=== PATIENT | female | born 1990 | race Caucasian/White ===

== ENCOUNTER 2016-06-20 08:03 | Inpatient (IN) | payer MEDICAID ==
[2016-06-20] MEDS ORDERED: Lactated Ringers 1,000 ML IV ONE ×2 (08:30→08:49)
[2016-06-20] MEDS ORDERED: Penicillin G Potassium 5 MILLUNITS in Sodium Chloride 0.9% 100 ML IV ONE (08:30)
[2016-06-20] MEDS ORDERED: Ondansetron 4 MG/2 ML SDV IV PRN (08:32)
[2016-06-20] MEDS ORDERED: Acetaminophen 325 MG Tab PO PRN (08:32)
[2016-06-20] MEDS ORDERED: fentaNYL 100 MCG/2 ML SDV IVPUSH PRN (08:32)
[2016-06-20] MEDS ORDERED: Sodium Chloride 0.9% 10 ML Syringe FLUSH PRN (08:32)
--- NOTE | 2016-06-20 08:49 | PCM.LDHP ---
L&D History of Present Illness - General Date of Service: 06/20/16 Admit Problem/Dx: Patient Status Order with Admit Dx/Problem 06/20/16 08:15 Patient Status [ADT] Routine Patient Status [ADT] Routine Admission Diagnosis/Problem Admission Diagnosis/Problem Source of Information: Patient History Limitations: Reports: No limitations - Related Data Allergies/Adverse Reactions: Allergies Allergy/AdvReac Type Severity Reaction Status Date / Time No Known Allergies Allergy Verified 11/04/13 21:27 Home Medications: Home Meds #57/Iron/FA/DSS/DHA [Extra-Virt Plus Dha Softgel] 1 cap PO DAILY [History] Past Medical History : 3 Para: 2 Other OB/BYN History: RAYSA-06/23/2016 Social & Family History - Tobacco Use Smoking Status *Q: Current Every Day Smoker Years of Tobacco use: 12 - Alcohol Use Days Per Week of Alcohol Use: 2 Number of Drinks Per Day: 4 Total Drinks Per Week: 8 - Recreational Drug Use Recreational Drug Use: No H&P Review of Systems - Review of Systems: Review Of Systems: See Below General: Reports: no symptoms HEENT: Reports: no symptoms Pulmonary: Reports: No Symptoms Cardiovascular: Reports: no symptoms Gastrointestinal: Reports: No symptoms Genitourinary: Reports: no symptoms Musculoskeletal: Reports: no symptoms Skin: Reports: no symptoms Psychiatric: Reports: no symptoms Neurological: Reports: No Symptoms Hematologic/Lymphatic: Reports: no symptoms Immunologic: Reports: no symptoms L&D Exam - Exam Exam: See Below - Vital Signs Weight: 70.307 kg - OB Specific Contraction Intensity: Strong movement: active heart tones: present Presentation: Vertex Estimated Weight: 7lbs - Denney Score Denney Score Cervix Position: Anterior Denney Score Consistency: Soft Denney Score Effacement: >80% Denney Score Dilation: > 5 cm Denney Score Infant's Station: -1 ,0 Denney Score Total: 12 - Exam General: alert, oriented HEENT: PERRLA, Conjunctiva clear, EACs clear, EOMI, Hearing intact, Mucosa moist & pink, Nares patent, Normal nasal septum, Posterior pharynx clear, Pupils equal, Pupils reactive, TMs clear Neck: supple, trachea midline Lungs: Clear to auscultation, Normal respiratory effort Cardiovascular: regular rate, regular rhythm Abdomen: normal bowel sounds, soft Rectal Exam: Normal exam Genitourinary: Normal external exam, Cervical dilitation Back Exam: normal inspection, full range of motion Extremities: normal inspection Skin: warm, dry, intact Neurological: cranial nerves intact, reflexes equal bilateral DTR: 2+: patella (L), patella (R) Psychiatric: alert, normal affect, normal mood - Patient Data Lab Results last 24 hrs: Laboratory Results - last 24 hr 06/20/16 Range/Units 08:26 WBC 14.5 H (4.5-11.0) K/uL RBC 4.35 (3.30-5.50) M/uL Hgb 13.3 D (12.0-15.0) g/dL Hct 39.1 (36.0-48.0) % MCV 90 (80-98) fL MCH 31 (27-31) pg MCHC 34 (32-36) % Plt Count 209 (150-400) K/uL Result Diagrams: 06/20/16 08:26 - Problem List (1) SNOMED Code(s): 90692932 ICD Code: Z33.1 - STATE, INCIDENTAL Status: Acute Current Visit : Yes Qualifiers: Weeks of gestation: 39 weeks Qualified Code(s): Z3A.39 - 39 weeks gestation of (2) Positive GBS test SNOMED Code(s): 3572402823525, 5014478982071 ICD Code: B95.1 - STREPTOCOCCUS, GROUP B, CAUSING DISEASES CLASSD [id number] Status: Acute Current Visit: Yes (3) Active labor at term SNOMED Code(s): 09017990 ICD Code: IRL9003 - Status: Acute Current Visit: Yes Problem List Initiated/Reviewed/Updated: Yes Orders Last 24hrs: Active Orders 24 hr Category Date Time Status Patient Status [ADT] Routine ADT 06/20/16 08:15 Active Patient Status [ADT] Routine ADT 06/20/16 08:15 Active Ambulate [RC] PER UNIT ROUTINE Care 06/20/16 08:32 Active Communication Order [RC] ASDIRECTED Care 06/20/16 08:32 Active Heart Tones [RC] PER UNIT ROUTINE Care 06/20/16 08:32 Active Notify Provider Vital Signs [RC] PRN Care 06/20/16 08:15 Active Notify Provider [RC] PRN Care 06/20/16 08:32 Active Up ad Claudia [RC] ASDIRECTED Care 06/20/16 08:32 Active VTE/DVT Education [RC] Click to Edit Care 06/20/16 08:34 Active Vital Signs [RC] PER UNIT ROUTINE Care 06/20/16 08:32 Active DRUG SCREEN, URINE [URCHEM] Routine Lab 06/20/16 08:26 Ordered UA W/MICROSCOPIC [URIN] Routine Lab 06/20/16 08:26 Ordered Acetaminophen [Tylenol] Med 06/20/16 08:32 Active 650 mg PO Q4H PRN Lactated Ringers [Ringers, Lactated] 1,000 ml Med 06/20/16 09:30 Active IV ASDIRECTED Lactated Ringers [Ringers, Lactated] 1,000 ml Med 06/20/16 08:30 Active IV BOLUS Ondansetron [Zofran] Med 06/20/16 08:32 Active 4 mg IV Q4H PRN Penicillin G Potassium [Pfizerpen] 2.5 millunits Med 06/20/16 12:30 Active Sodium Chloride 0.9% [Normal Saline] 50 ml IV Q4H Penicillin G Potassium [Pfizerpen] 5 millunits Med 06/20/16 08:30 Active Sodium Chloride 0.9% [Normal Saline] 100 ml IV ONETIME Sodium Chloride 0.9% [Saline Flush] Med 06/20/16 08:32 Active 10 ml FLUSH ASDIRECTED PRN fentaNYL [Sublimaze] Med 06/20/16 08:32 Active 100 mcg IVPUSH Q1H PRN DVT/VTE Prophylaxis Reflex [OM.PC] Routine Oth 06/20/16 08:32 Ordered Saline Lock Insert [OM.PC] Routine Oth 06/20/16 08:32 Ordered Resuscitation Status Routine Resus Stat 06/20/16 08:32 Ordered Medication Orders Acetaminophen (Tylenol) 650 mg PO Q4H PRN PRN Reason: Pain (Mild 1-3) and fever Fentanyl (Sublimaze) 100 mcg IVPUSH Q1H PRN PRN Reason: Pain (moderate 4-6) Penicillin G Potassium 5 (millunits/ Sodium Chloride) 100 mls @ 100 mls/hr IV ONETIME ONE Stop: 06/20/16 09:29 Lactated Ringer's (Ringers, Lactated) 1,000 mls @ 999 mls/hr IV BOLUS ONE Stop: 06/20/16 09:30 Lactated Ringer's (Ringers, Lactated) 1,000 mls @ 125 mls/hr IV ASDIRECTED CARLOS ALBERTO Penicillin G Potassium 2.5 (millunits/ Sodium Chloride) 50 mls @ 100 mls/hr IV Q4H CARLOS ALBERTO Ondansetron HCl (Zofran) 4 mg IV Q4H PRN PRN Reason: Nausea/Vomiting Sodium Chloride (Saline Flush) 10 ml FLUSH ASDIRECTED PRN PRN Reason: Keep Vein Open Assessment/Plan Comment:: 06/20/2016 26 yo came in this am in active labor. 39 4/7 gestational weeks today. States contractions started last night but did not get consistent till this am SVE-/ with a bulgy bag of [place] Admit for active labor at this time Labs-O negative, GBS positive, RPR nonreactive, Hep B negative, HIV negative, Rubella Immune Plan- Monitor active labor Up and about as patient desires FHTS monitor continuously Epidural for pain control per patient request Plan and anticipate a vaginal delivery
[2016-06-20] MEDS ORDERED: Lidocaine 1% 50 ML MDV ONE (09:04)
[2016-06-20] MEDS ORDERED: Naloxone 0.4 MG/ML SDV ONE (09:04)
[2016-06-20] MEDS ORDERED: Mineral Oil 10 ML Bottle ONE (09:04)
[2016-06-20] MEDS ORDERED: Lactated Ringers 1,000 ML IV SCH (09:30)
[2016-06-20] MEDS ORDERED: ePHEDrine 50 MG/ML SDV IVPUSH PRN ×2 (09:45→11:56)
[2016-06-20] MEDS: ePHEDrine 50 MG/ML SDV ONE ×2 (09:58→10:06)
--- NOTE | 2016-06-20 10:47 | PCM.PNLD ---
Labor Progress Note - VS & Meds Active Medications: Current Medications Acetaminophen (Tylenol) 650 mg PO Q4H PRN PRN Reason: Pain (Mild 1-3) and fever Ephedrine Sulfate (Ephedrine Sulfate) 5 - 10 mg IVPUSH ONETIME PRN PRN Reason: Hypotension Fentanyl (Sublimaze) 100 mcg IVPUSH Q1H PRN PRN Reason: Pain (moderate 4-6) Lactated Ringer's (Ringers, Lactated) 1,000 mls @ 125 mls/hr IV ASDIRECTED CARLOS ALBETRO Last Admin: 06/20/16 09:55 Dose: 125 mls/hr Penicillin G Potassium 2.5 (millunits/ Sodium Chloride) 50 mls @ 100 mls/hr IV Q4H CARLOS ALBERTO Ondansetron HCl (Zofran) 4 mg IV Q4H PRN PRN Reason: Nausea/Vomiting Sodium Chloride (Saline Flush) 10 ml FLUSH ASDIRECTED PRN PRN Reason: Keep Vein Open Discontinued Medications Ephedrine Sulfate (Ephedrine Sulfate) Confirm Administered Dose 50 mg .ROUTE .STK-MED ONE Stop: 06/20/16 09:54 Last Admin: 06/20/16 10:06 Dose: 5 mg Penicillin G Potassium 5 (millunits/ Sodium Chloride) 100 mls @ 100 mls/hr IV ONETIME ONE Stop: 06/20/16 09:29 Last Admin: 06/20/16 08:44 Dose: 100 mls/hr Lactated Ringer's (Ringers, Lactated) 1,000 mls @ 999 mls/hr IV BOLUS ONE Stop: 06/20/16 09:30 Last Admin: 06/20/16 08:25 Dose: 999 mls/hr Lactated Ringer's (Ringers, Lactated) 1,000 mls @ 999 mls/hr IV .BOLUS ONE Stop: 06/20/16 09:49 Last Admin: 06/20/16 10:24 Dose: Not Given Oxytocin/Sodium Chloride (Pitocin In Ns 20 Units/1,000 Ml) Confirm Administered Dose 20 unit in 1,000 mls @ as directed .ROUTE .STK-MED ONE Stop: 06/20/16 09:05 Lidocaine HCl (Xylocaine 1%) Confirm Administered Dose 100 ml .ROUTE .STK-MED ONE Stop: 06/20/16 09:05 Mineral Oil (Muri-Lube) Confirm Administered Dose 10 ml .ROUTE .STK-MED ONE Stop: 06/20/16 09:05 Naloxone HCl (Narcan) Confirm Administered Dose 0.4 mg .ROUTE .STK-MED ONE Stop: 06/20/16 09:05 - Uterine Contractions Contraction Intensity: Strong - Labor Progress (Free Text) Labor Progress: 06/20/2016 Resting comfortable after epidural SVE per RN 95/0 bulgy bag of water still intact [place] placed before exam Continue to monitor labor Continue to monitor FHTs Continue epidural for pain management Plan and anticipate for a vaginal delivery
[2016-06-20] MEDS ORDERED: Ropivacaine 100 ML ONE (11:01)
[2016-06-20] MEDS ORDERED: Naloxone 0.4 MG/ML SDV IVPUSH PRN (11:56)
[2016-06-20] MEDS ORDERED: diphenhydrAMINE 50 MG/ML SDV IVPUSH PRN (11:56)
[2016-06-20] MEDS ORDERED: Ropivacaine 100 ML EPIDUR SCH (11:56)
[2016-06-20] MEDS ORDERED: Penicillin G Potassium 2.5 MILLUNITS in Sodium Chloride 0.9% 50 ML IV SCH (12:30)
--- NOTE | 2016-06-20 12:31 | PCM.PNLD ---
Labor Progress Note - VS & Meds Vital Signs: Last Vital Signs Temp 36.9 C 06/20/16 09:00 Pulse 81 06/20/16 11:55 Resp 18 06/20/16 11:55 BP 114/69 06/20/16 11:55 Pulse Ox 99 06/20/16 11:55 Active Medications: Current Medications Acetaminophen (Tylenol) 650 mg PO Q4H PRN PRN Reason: Pain (Mild 1-3) and fever Diphenhydramine HCl (Benadryl) 25 mg IVPUSH Q6H PRN PRN Reason: ITCHING Ephedrine Sulfate (Ephedrine Sulfate) 5 - 10 mg IVPUSH ASDIRECTED PRN PRN Reason: IF SYSTOLIC BP LESS THAN 100 Fentanyl (Sublimaze) 100 mcg IVPUSH Q1H PRN PRN Reason: Pain (moderate 4-6) Lactated Ringer's (Ringers, Lactated) 1,000 mls @ 125 mls/hr IV ASDIRECTED [facility] Last Admin: 06/20/16 09:55 Dose: 125 mls/hr Penicillin G Potassium 2.5 (millunits/ Sodium Chloride) 50 mls @ 100 mls/hr IV Q4H [facility] Last Admin: 06/20/16 11:59 Dose: 100 mls/hr Ropivacaine (Naropin 0.2%) 100 mls @ 0 mls/hr EPIDUR ASDIRECTED [facility]; Titrate PRN Reason: Protocol Naloxone HCl (Narcan) 0.1 mg IVPUSH Q5M PRN PRN Reason: IF RESP RATE LESS THAN 6 Ondansetron HCl (Zofran) 4 mg IV Q4H PRN PRN Reason: Nausea/Vomiting Sodium Chloride (Saline Flush) 10 ml FLUSH ASDIRECTED PRN PRN Reason: Keep Vein Open Discontinued Medications Ephedrine Sulfate (Ephedrine Sulfate) Confirm Administered Dose 50 mg .ROUTE .STK-MED ONE Stop: 06/20/16 09:54 Last Admin: 06/20/16 10:06 Dose: 5 mg Penicillin G Potassium 5 (millunits/ Sodium Chloride) 100 mls @ 100 mls/hr IV ONETIME ONE Stop: 06/20/16 09:29 Last Admin: 06/20/16 08:44 Dose: 100 mls/hr Lactated Ringer's (Ringers, Lactated) 1,000 mls @ 999 mls/hr IV BOLUS ONE Stop: 06/20/16 09:30 Last Admin: 06/20/16 08:25 Dose: 999 mls/hr Lactated Ringer's (Ringers, Lactated) 1,000 mls @ 999 mls/hr IV .BOLUS ONE Stop: 06/20/16 09:49 Last Admin: 06/20/16 10:24 Dose: Not Given Oxytocin/Sodium Chloride (Pitocin In Ns 20 Units/1,000 Ml) Confirm Administered Dose 20 unit in 1,000 mls @ as directed .ROUTE .STK-MED ONE Stop: 06/20/16 09:05 Ropivacaine (Naropin 0.2%) Confirm Administered Dose 100 mls @ as directed .ROUTE .STK-MED ONE Stop: 06/20/16 11:02 Lidocaine HCl (Xylocaine 1%) Confirm Administered Dose 100 ml .ROUTE .STK-MED ONE Stop: 06/20/16 09:05 Mineral Oil (Muri-Lube) Confirm Administered Dose 10 ml .ROUTE .STK-MED ONE Stop: 06/20/16 09:05 Naloxone HCl (Narcan) Confirm Administered Dose 0.4 mg .ROUTE .STK-MED ONE Stop: 06/20/16 09:05 - Uterine Contractions Uterine Monitoring Mode: External Radar Base Contraction Frequency (min): 2-7 Contraction Duration (sec): 50-100 Contraction Intensity: Moderate to Strong Uterine Resting Tone: Soft - Vaginal Exam Dilation (cm): 8-9 Effacement (Percent): 90 Station: 1 Cervical Position: Midposition Sterile Vaginal Exam Performed By: Delilah Nicholas - Labor Progress (Free Text) Labor Progress: 06/20/2016 Patient comfortable with epidural SVE-9/90/0 AROM done at this time. Clear fluid noted. Family and significant other at bedside and supportive Plan Continue to monitor labor Continue to monitor FHTs Plan and anticipate vaginal delivery
[2016-06-20] MEDS ORDERED: Benzocaine 20% Top Spray 56 GM Bottle TOP PRN (15:28)
[2016-06-20] MEDS ORDERED: Docusate Sodium 100 MG Cap PO PRN (15:28)
[2016-06-20] MEDS ORDERED: Lanolin 100% Cream 40 GM Tube TOP PRN (15:28)
[2016-06-20] MEDS ORDERED: Witch Hazel Medicated Pads 100/Jar TOP PRN (15:28)
[2016-06-20] MEDS ORDERED: Ibuprofen 600 MG Tab ONE (15:35)
[2016-06-20] MEDS: Ibuprofen 600 MG Tab PO PRN (15:41)
[2016-06-20] MEDS: Acetaminophen/HYDROcodone 325-5 MG Tab PO PRN (17:46)
--- NOTE | 2016-06-20 18:44 | PCM.DEL ---
L & D Note - General Info Date of Service: 06/20/16 Mother's Due Date: 06/23/16 - Delivery Note Labor: spontaneous Delivery Outcome: Livebirth Infant Delivery Method: Spontaneous Vaginal Delivery Infant Delivery Mode: Spontaneous Presentation: Right Occiput Anterior (ELAINA) Nuchal cord: present, reduced Anesthesia Type: Epidural Amniotic Fluid Description: Clear Laceration: 1st degree, perineal Suture type: vicryl Suture size: 3-0 Placenta: intact, spontaneous Cord: 3 vessels Estimated blood loss: 200 Resuscitation needed: No : bulb syringe, stimulated, warmed Second Stage Interventions: Reports: Encouragement Given, Pushing Effectively Delivery Comments (Free Text/Narrative):: 06/20/2016 26 yo G3 now P3 now 39 4/7 gestation delivered a female in normal spontaneous vaginal delivery in ELAINA position at 1450 Infant was placed on prewarmed blanket on mothers abdomen, delayed cord clamping , then cord was double clamped and cut by father of infant. was stimulated and warmed and cried out vigorously, 7/9/9, weight 8lbs 10oz, length 20.5 inches, three vessel cord. Placenta spontaneous intact and EBL-200 1st degree perineum tear repaired in usual fashion, no lacerations to cervix, labia or rectum noted. Mother in labor room stable and stable skin to skin. Induction Criteria - Augmentation Estimated Pelvis: Reports: Adequate weight estimated:: Reports: AGA Reassuring monitoring strip: Yes - General Info Date of Service: 06/20/16 Admission Dx/Problem (Free Text): Patient Status Order with Admit Dx/Problem 06/20/16 08:15 Patient Status [ADT] Routine Patient Status [ADT] Routine Admission Diagnosis/Problem Admission Diagnosis/Problem Functional Status: Reports: pain controlled - Review of Systems General: Reports: No Symptoms HEENT: Reports: no symptoms Pulmonary: Reports: no symptoms Cardiovascular: Reports: No Symptoms Gastrointestinal: Reports: No symptoms Genitourinary: Reports: no symptoms Musculoskeletal: Reports: no symptoms Skin: Reports: no symptoms Neurological: Reports: No Symptoms Psychiatric: Reports: no symptoms - Patient Data Vitals - most recent: Last Vital Signs Temp 37.4 C 06/20/16 18:03 Pulse 68 06/20/16 18:03 Resp 18 06/20/16 18:03 BP 114/64 06/20/16 18:03 Pulse Ox 97 06/20/16 13:45 Weight - most recent: 70.307 kg I&O - last 24 hours: Intake & Output 06/20/16 06/20/16 06/20/16 06:59 14:59 22:59 Intake Total 1100 1050 Output Total 550 Balance 1100 500 Lab Results last 24 hrs: Laboratory Results - last 24 hr 06/20/16 06/20/16 06/20/16 Range/Units 08:26 08:26 08:26 WBC 14.5 H (4.5-11.0) K/uL RBC 4.35 (3.30-5.50) M/uL Hgb 13.3 D (12.0-15.0) g/dL Hct 39.1 (36.0-48.0) % MCV 90 (80-98) fL MCH 31 (27-31) pg MCHC 34 (32-36) % Plt Count 209 (150-400) K/uL Urine Color Yellow Urine Appearance Slightly cloudy Urine pH 7.0 (4.5-8.0) Ur Specific [place] 1.010 (1.008-1.030) Urine Protein Negative (NEGATIVE) mg/dL Urine Glucose (UA) Normal (NEGATIVE) mg/dL Urine Ketones Negative (NEGATIVE) mg/dL Urine Occult Blood Negative (NEGATIVE) Urine Nitrite Negative (NEGATIVE) Urine Bilirubin Negative (NEGATIVE) Urine Urobilinogen Normal (NORMAL) mg/dL Ur Leukocyte Esterase Negative (NEGATIVE) Urine RBC 0-5 (0-5) Urine WBC 0-5 (0-5) Ur Epithelial Cells Rare Amorphous Sediment Not seen Urine Bacteria Rare Urine Mucus Rare Urine Opiates Screen Negative (NEGATIVE) Ur Oxycodone Screen Negative (NEGATIVE) Urine Methadone Screen Negative (NEGATIVE) Ur Propoxyphene Screen Negative (NEGATIVE) Ur Barbiturates Screen Negative (NEGATIVE) Ur Tricyclics Screen Negative (NEGATIVE) Ur Phencyclidine Scrn Negative (NEGATIVE) Ur Amphetamine Screen Negative (NEGATIVE) U Methamphetamines Scrn Negative (NEGATIVE) Urine MDMA Screen Negative (NEGATIVE) U Benzodiazepines Scrn Negative (NEGATIVE) U Cocaine Metab Screen Negative (NEGATIVE) U Marijuana (THC) Screen Positive H (NEGATIVE) Med Orders - Current: Current Medications Acetaminophen (Tylenol) 650 mg PO Q4H PRN PRN Reason: Pain (Mild 1-3) and fever Hydrocodone Bitart/Acetaminophen ([place] 325-5 Mg) 1 - 2 tab PO Q4H PRN PRN Reason: Pain (moderate 4-6) Last Admin: 06/20/16 17:46 Dose: 2 tab Benzocaine (Jhms-I-Tbrnajx 20% Harrell[place]) 0 gm TOP Q4H PRN PRN Reason: Perineal Comfort Measure Docusate Sodium (Colace) 100 mg PO BID PRN PRN Reason: Constipation Emollient Ointment (Lansinoh Hpa) 0 gm TOP ASDIRECTED PRN PRN Reason: Sore Nipples Oxytocin/Sodium Chloride (Pitocin In Ns 20 Units/1,000 Ml) 20 unit in 1,000 mls @ 6 mls/hr IV TITRATE CARLOS ALBERTO; 2 MUNITS/MIN PRN Reason: Protocol Last Titration: 06/20/16 15:30 Dose: 125 mls/hr Ibuprofen (Motrin) 600 mg PO Q6H PRN PRN Reason: mild pain or fever Last Admin: 06/20/16 15:41 Dose: 600 mg Ondansetron HCl (Zofran) 4 mg IV Q4H PRN PRN Reason: Nausea/Vomiting Sodium Chloride (Saline Flush) 10 ml FLUSH ASDIRECTED PRN PRN Reason: Keep Vein Open Witch Cinthia (Tucks) 1 pad TOP ASDIRECTED PRN PRN Reason: Hemorrhoids Discontinued Medications Diphenhydramine HCl (Benadryl) 25 mg IVPUSH Q6H PRN PRN Reason: ITCHING Ephedrine Sulfate (Ephedrine Sulfate) Confirm Administered Dose 50 mg .ROUTE .STK-MED ONE Stop: 06/20/16 09:54 Last Admin: 06/20/16 10:06 Dose: 5 mg Ephedrine Sulfate (Ephedrine Sulfate) 5 - 10 mg IVPUSH ASDIRECTED PRN PRN Reason: IF SYSTOLIC BP LESS THAN 100 Fentanyl (Sublimaze) 100 mcg IVPUSH Q1H PRN PRN Reason: Pain (moderate 4-6) Penicillin G Potassium 5 (millunits/ Sodium Chloride) 100 mls @ 100 mls/hr IV ONETIME ONE Stop: 06/20/16 09:29 Last Admin: 06/20/16 08:44 Dose: 100 mls/hr Lactated Ringer's (Ringers, Lactated) 1,000 mls @ 999 mls/hr IV BOLUS ONE Stop: 06/20/16 09:30 Last Admin: 06/20/16 08:25 Dose: 999 mls/hr Lactated Ringer's (Ringers, Lactated) 1,000 mls @ 125 mls/hr IV ASDIRECTED CARLOS ALBERTO Last Admin: 06/20/16 09:55 Dose: 125 mls/hr Penicillin G Potassium 2.5 (millunits/ Sodium Chloride) 50 mls @ 100 mls/hr IV Q4H [facility]LOS ALBERTO Last Admin: 06/20/16 11:59 Dose: 100 mls/hr Lactated Ringer's (Ringers, Lactated) 1,000 mls @ 999 mls/hr IV .BOLUS ONE Stop: 06/20/16 09:49 Last Admin: 06/20/16 10:24 Dose: Not Given Oxytocin/Sodium Chloride (Pitocin In Ns 20 Units/1,000 Ml) Confirm Administered Dose 20 unit in 1,000 mls @ as directed .ROUTE .STK-MED ONE Stop: 06/20/16 09:05 Last Admin: 06/20/16 13:21 Dose: Not Given Ropivacaine (Naropin 0.2%) Confirm Administered Dose 100 mls @ as directed .ROUTE .STK-MED ONE Stop: 06/20/16 11:02 Ropivacaine (Naropin 0.2%) 100 mls @ 0 mls/hr EPIDUR ASDIRECTED [facility]; Titrate PRN Reason: Protocol Oxytocin/Sodium Chloride (Pitocin In Ns 20 Units/1,000 Ml) 20 unit in 1,000 mls @ 2,997 mls/hr IV ONETIME ONE; 999 MUNITS/MIN PRN Reason: Protocol Stop: 06/20/16 03:20 Last Admin: 06/20/16 15:50 Dose: Not Given Ibuprofen (Motrin) Confirm Administered Dose 600 mg .ROUTE .STK-MED ONE Stop: 06/20/16 15:36 Last Admin: 06/20/16 15:41 Dose: Not Given Lidocaine HCl (Xylocaine 1%) Confirm Administered Dose 100 ml .ROUTE .STK-MED ONE Stop: 06/20/16 09:05 Last Admin: 06/20/16 15:40 Dose: Not Given Mineral Oil (Muri-Lube) Confirm Administered Dose 10 ml .ROUTE .STK-MED ONE Stop: 06/20/16 09:05 Last Admin: 06/20/16 15:40 Dose: Not Given Naloxone HCl (Narcan) Confirm Administered Dose 0.4 mg .ROUTE .STK-MED ONE Stop: 06/20/16 09:05 Last Admin: 06/20/16 15:40 Dose: Not Given Naloxone HCl (Narcan) 0.1 mg IVPUSH Q5M PRN PRN Reason: IF RESP RATE LESS THAN 6 - Exam General: alert, oriented HEENT: Pupils equal, Pupils reactive, EOMI, Mucous membr. moist/pink Neck: supple Lungs: Clear to auscultation, Normal respiratory effort Cardiovascular: Regular Rate, Regular Rhythm Abdomen: bowel sounds present, soft, no tenderness, no distension (Female) Exam: Normal external exam, Normal speculum exam, Normal bimanual exam, Enlarged uterus, Vaginal bleeding Back Exam: normal inspection, full range of motion Extremities: no edema Skin: warm, dry, intact Wound/Incisions: healing well Neurological: no new focal deficit Psy/Mental Status: alert, normal affect, normal mood - Problem List & Annotations (1) SNOMED Code(s): 05277826 Code(s): Z33.1 - STATE, INCIDENTAL Status: Acute Current Visit: Yes Qualifiers: Weeks of gestation: 39 weeks Qualified Code(s): Z3A.39 - 39 weeks gestation of (2) Positive GBS test SNOMED Code(s): 5831560453757, 5786993892797 Code(s): B95.1 - STREPTOCOCCUS, GROUP B, CAUSING DISEASES CLASSD [facility] Status: Acute Current Visit: Yes (3) Active labor at term SNOMED Code(s): 14508010 Code(s): NXK6905 - Status: Acute Current Visit: Yes (4) Normal vaginal delivery SNOMED Code(s): 70027288 Code(s): O80 - ENCOUNTER FOR FULL-TERM UNCOMPLICATED DELIVERY Status: Acute Current Visit: Yes (5) Perineal laceration SNOMED Code(s): 615673899 Code(s): S31.41XA - LACERATION W/O FOREIGN BODY OF VAGINA AND VULVA, INIT ENCNTR Status: Acute Current Visit: Yes Qualifiers: Encounter type: initial encounter Qualified Code(s): S31.41XA - Laceration without foreign body of vagina and vulva, initial encounter - Problem List Review Problem List Initiated/Reviewed/Updated: Yes - My Orders Last 24 Hours: My Active Orders 06/20/16 08:15 Patient Status [ADT] Routine Patient Status [ADT] Routine Notify Provider Vital Signs [RC] PRN 06/20/16 08:32 Ambulate [RC] PER UNIT ROUTINE Notify Provider [RC] PRN Up ad Claudia [RC] ASDIRECTED Vital Signs [RC] PER UNIT ROUTINE Acetaminophen [Tylenol] 650 mg PO Q4H PRN Ondansetron [Zofran] 4 mg IV Q4H PRN Sodium Chloride 0.9% [Saline Flush] 10 ml FLUSH ASDIRECTED PRN DVT/VTE Prophylaxis Reflex [OM.PC] Routine Saline Lock Insert [OM.PC] Routine Resuscitation Status Routine 06/20/16 08:34 VTE/DVT Education [RC] Click to Edit 06/20/16 08:49 Epidural Catheter Management [OM.PC] Stat 06/20/16 10:30 [place] Catheter Insertion [Insert Urinary Catheter] [OM.PC] Q24H 06/20/16 13:15 Oxytocin/Normal Saline [Pitocin in NS 20 Units/1,000 ML] 20 unit in 1,000 ml IV TITRATE 06/20/16 15:28 Patient Status [ADT] Routine Consult to Home Health [CONS] Routine Acetaminophen/HYDROcodone [[place] 325-5 MG] 1 - 2 tab PO Q4H PRN Benzocaine [Okwo-E-Eqwnlcf 20% Harrells] See Dose Instructions TOP Q4H PRN Docusate Sodium [Colace] 100 mg PO BID PRN Ibuprofen [Motrin] 600 mg PO Q6H PRN Lanolin [Lansinoh HPA] 0 gm TOP ASDIRECTED PRN Witch Cinthia [Tucks] 1 pad TOP ASDIRECTED PRN Assess Lochia [WOMSER] Per Unit Routine Assess Uterine Involution [WOMSER] Per Unit Routine 06/20/16 15:29 Ice Therapy [OM.PC] Per Unit Routine Perineal Care [OM.PC] Per Unit Routine Sitz Bath [OM.PC] Per Unit Routine 06/20/16 17:10 RHOGAM, [RHIG WORKUP, ] [BBK] Routine 06/20/16 Dinner Regular Diet [DIET] 06/21/16 06:00 CBC WITH AUTO DIFF [HEME] Routine - Assessment Assessment:: 06/20/2016 26 yo G3 now P3 now 39 4/7 gestation delivered a female in normal spontaneous vaginal delivery in ELAINA position at 1450 Infant was placed on prewarmed blanket on mothers abdomen, delayed cord clamping , then cord was double clamped and cut by father of . was stimulated and warmed and cried out vigorously, 7/9/9, weight 8lbs 10oz, length 20.5 inches, three vessel cord. Placenta spontaneous intact and EBL-200 1st degree perineum tear repaired in usual fashion, no lacerations to cervix, labia or rectum noted. Mother in labor room stable and stable skin to skin. Labs-GBS positive, A positive, RPR nonreactive, Rubella nonimmune, HIV negative , Hep B negative - Plan Plan:: 06/20/2016 26 yo came in this am in active labor. 39 4/7 gestational weeks today. States contractions started last night but did not get consistent till this am SVE-/ with a bulgy bag of [place] Admit for active labor at this time Labs-O negative, GBS positive, RPR nonreactive, Hep B negative, HIV negative, Rubella Immune Plan- Monitor active labor Up and about as patient desires FHTS monitor continuously Epidural for pain control per patient request Plan and anticipate a vaginal delivery 06/20/2016 Routine cares Rhogam work up if needed Ice, tucks, spray to laceration Monitor fundus and bleeding routinely Oral pain medications as needed Encourage and support Plan discharge 48hrs due to GBS status
--- NOTE | 2016-06-20 20:34 | ANES ---
DATE OF SERVICE: 06/20/2016 Thea is a 26-year-old female patient of Patricia Bruce. Please refer to Patricia's note for diagnosis. Thea is here today with prolonged stage II labor. I was requested to consult for labor epidural. Upon arrival, I found a 26-year-old healthy female . I discussed with her risks and benefits of the procedure. She was okay to proceed. I found no contraindication to epidural placement. DESCRIPTION OF PROCEDURE: At that point, I had her seated at the edge of the bed, Betadine prep x3 to lumbar region. Sterile drape was placed and 1% lidocaine skin wheal, I believe, at the L3-L4 region, as well as deep. A 17-gauge Tuohy was placed to loss of resistance with ease. Negative CSF, negative heme, negative paresthesia. I inserted a catheter to 14 cm. At that point, a test dose was placed, 3 mL of 1.5% lidocaine with 1:200,000 epinephrine. She had negative results from the sequela. I secured the tube, placed her in a supine position, and started an infusion of 12 mL/hour of that same 0.2% ropivacaine. She tolerated the procedure quite well. Please refer to nurse's notes for vital signs and neuro status, which are unchanged and reported off to the nurse the procedure as well as what was given. Neto Lackey CRNA /[id number]
[2016-06-21] MEDS: Ibuprofen 600 MG Tab PO PRN ×3 (00:14→19:40)
[2016-06-21] MEDS: Acetaminophen/HYDROcodone 325-5 MG Tab PO PRN ×5 (00:15→23:32)
--- NOTE | 2016-06-21 08:15 | PCM.PNPP ---
- General Info Date of Service: 06/21/16 ( Day One) Admission Dx/Problem (Free Text): Patient Status Order with Admit Dx/Problem 06/20/16 08:15 Patient Status [ADT] Routine Patient Status [ADT] Routine Admission Diagnosis/Problem Admission Diagnosis/Problem Functional Status: Reports: pain controlled - Review of Systems General: Reports: No Symptoms HEENT: Reports: no symptoms Pulmonary: Reports: no symptoms Cardiovascular: Reports: No Symptoms Gastrointestinal: Reports: No symptoms Genitourinary: Reports: no symptoms Musculoskeletal: Reports: no symptoms Skin: Reports: no symptoms Neurological: Reports: No Symptoms Psychiatric: Reports: no symptoms - General Info Date of Service: 06/21/16 - Patient Data Vital Signs - most recent: Last Vital Signs Temp 36.1 C 06/21/16 04:55 Pulse 83 06/21/16 04:55 Resp 18 06/21/16 04:55 BP 103/75 06/21/16 04:55 Pulse Ox 100 06/21/16 04:55 Weight - most recent: 70.307 kg I&O - last 24 hours: Intake & Output 06/20/16 06/21/16 06/21/16 22:59 06:59 14:59 Intake Total 1052 1240 Output Total 550 1350 Balance 502 -110 Lab Results - last 24 hrs: Laboratory Results - last 24 hr 06/20/16 06/20/16 06/20/16 Range/Units 08:26 08:26 08:26 WBC 14.5 H (4.5-11.0) K/uL RBC 4.35 (3.30-5.50) M/uL Hgb 13.3 D (12.0-15.0) g/dL Hct 39.1 (36.0-48.0) % MCV 90 (80-98) fL MCH 31 (27-31) pg MCHC 34 (32-36) % Plt Count 209 (150-400) K/uL Neut % (Auto) (36-66) % Lymph % (Auto) (24-44) % Lucas % (Auto) (2-6) % Eos % (Auto) (2-4) % Baso % (Auto) (0-1) % Urine Color Yellow Urine Appearance Slightly cloudy Urine pH 7.0 (4.5-8.0) Ur Specific [place] 1.010 (1.008-1.030) Urine Protein Negative (NEGATIVE) mg/dL Urine Glucose (UA) Normal (NEGATIVE) mg/dL Urine Ketones Negative (NEGATIVE) mg/dL Urine Occult Blood Negative (NEGATIVE) Urine Nitrite Negative (NEGATIVE) Urine Bilirubin Negative (NEGATIVE) Urine Urobilinogen Normal (NORMAL) mg/dL Ur Leukocyte Esterase Negative (NEGATIVE) Urine RBC 0-5 (0-5) Urine WBC 0-5 (0-5) Ur Epithelial Cells Rare Amorphous Sediment Not seen Urine Bacteria Rare Urine Mucus Rare Urine Opiates Screen Negative (NEGATIVE) Ur Oxycodone Screen Negative (NEGATIVE) Urine Methadone Screen Negative (NEGATIVE) Ur Propoxyphene Screen Negative (NEGATIVE) Ur Barbiturates Screen Negative (NEGATIVE) Ur Tricyclics Screen Negative (NEGATIVE) Ur Phencyclidine Scrn Negative (NEGATIVE) Ur Amphetamine Screen Negative (NEGATIVE) U Methamphetamines Scrn Negative (NEGATIVE) Urine MDMA Screen Negative (NEGATIVE) U Benzodiazepines Scrn Negative (NEGATIVE) U Cocaine Metab Screen Negative (NEGATIVE) U Marijuana (THC) Screen Positive H (NEGATIVE) Blood Type Gel Antibody Screen Rhogam Indicated 06/20/16 06/21/16 Range/Units 17:10 05:55 WBC 14.4 H (4.5-11.0) K/uL RBC 4.01 (3.30-5.50) M/uL Hgb 12.1 (12.0-15.0) g/dL Hct 36.5 (36.0-48.0) % MCV 91 (80-98) fL MCH 30 (27-31) pg MCHC 33 (32-36) % Plt Count 203 (150-400) K/uL Neut % (Auto) 73 H (36-66) % Lymph % (Auto) 18 L (24-44) % Lucas % (Auto) 7 H (2-6) % Eos % (Auto) 1 L (2-4) % Baso % (Auto) 0 (0-1) % Urine Color Urine Appearance Urine pH (4.5-8.0) Ur Specific [place] (1.008-1.030) Urine Protein (NEGATIVE) mg/dL Urine Glucose (UA) (NEGATIVE) mg/dL Urine Ketones (NEGATIVE) mg/dL Urine Occult Blood (NEGATIVE) Urine Nitrite (NEGATIVE) Urine Bilirubin (NEGATIVE) Urine Urobilinogen (NORMAL) mg/dL Ur Leukocyte Esterase (NEGATIVE) Urine RBC (0-5) Urine WBC (0-5) Ur Epithelial Cells Amorphous Sediment Urine Bacteria Urine Mucus Urine Opiates Screen (NEGATIVE) Ur Oxycodone Screen (NEGATIVE) Urine Methadone Screen (NEGATIVE) Ur Propoxyphene Screen (NEGATIVE) Ur Barbiturates Screen (NEGATIVE) Ur Tricyclics Screen (NEGATIVE) Ur Phencyclidine Scrn (NEGATIVE) Ur Amphetamine Screen (NEGATIVE) U Methamphetamines Scrn (NEGATIVE) Urine MDMA Screen (NEGATIVE) U Benzodiazepines Scrn (NEGATIVE) U Cocaine Metab Screen (NEGATIVE) U Marijuana (THC) Screen (NEGATIVE) Blood Type O NEGATIVE Gel Antibody Screen Positive A* Rhogam Indicated Yes, baby rh pos Med Orders - Current: Current Medications Acetaminophen (Tylenol) 650 mg PO Q4H PRN PRN Reason: Pain (Mild 1-3) and fever Hydrocodone Bitart/Acetaminophen ([place] 325-5 Mg) 1 - 2 tab PO Q4H PRN PRN Reason: Pain (moderate 4-6) Last Admin: 06/21/16 05:00 Dose: 2 tab Benzocaine (Kwes-R-Zggduwu 20% Ayer) 0 gm TOP Q4H PRN PRN Reason: Perineal Comfort Measure Docusate Sodium (Colace) 100 mg PO BID PRN PRN Reason: Constipation Emollient Ointment (Lansinoh Hpa) 0 gm TOP ASDIRECTED PRN PRN Reason: Sore Nipples Oxytocin/Sodium Chloride (Pitocin In Ns 20 Units/1,000 Ml) 20 unit in 1,000 mls @ 6 mls/hr IV TITRATE CARLOS ALBERTO; 2 MUNITS/MIN PRN Reason: Protocol Last Titration: 06/20/16 15:30 Dose: 125 mls/hr Ibuprofen (Motrin) 600 mg PO Q6H PRN PRN Reason: mild pain or fever Last Admin: 06/21/16 00:14 Dose: 600 mg Ondansetron HCl (Zofran) 4 mg IV Q4H PRN PRN Reason: Nausea/Vomiting Sodium Chloride (Saline Flush) 10 ml FLUSH ASDIRECTED PRN PRN Reason: Keep Vein Open Witch Cinthia (Tucks) 1 pad TOP ASDIRECTED PRN PRN Reason: Hemorrhoids Discontinued Medications Diphenhydramine HCl (Benadryl) 25 mg IVPUSH Q6H PRN PRN Reason: ITCHING Ephedrine Sulfate (Ephedrine Sulfate) Confirm Administered Dose 50 mg .ROUTE .STK-MED ONE Stop: 06/20/16 09:54 Last Admin: 06/20/16 10:06 Dose: 5 mg Ephedrine Sulfate (Ephedrine Sulfate) 5 - 10 mg IVPUSH ASDIRECTED PRN PRN Reason: IF SYSTOLIC BP LESS THAN 100 Fentanyl (Sublimaze) 100 mcg IVPUSH Q1H PRN PRN Reason: Pain (moderate 4-6) Penicillin G Potassium 5 (millunits/ Sodium Chloride) 100 mls @ 100 mls/hr IV ONETIME ONE Stop: 06/20/16 09:29 Last Admin: 06/20/16 08:44 Dose: 100 mls/hr Lactated Ringer's (Ringers, Lactated) 1,000 mls @ 999 mls/hr IV BOLUS ONE Stop: 06/20/16 09:30 Last Admin: 06/20/16 08:25 Dose: 999 mls/hr Lactated Ringer's (Ringers, Lactated) 1,000 mls @ 125 mls/hr IV ASDIRECTED CARLOS ALBERTO Last Admin: 06/20/16 09:55 Dose: 125 mls/hr Penicillin G Potassium 2.5 (millunits/ Sodium Chloride) 50 mls @ 100 mls/hr IV Q4H CARLOS ALBERTO Last Admin: 06/20/16 11:59 Dose: 100 mls/hr Lactated Ringer's (Ringers, Lactated) 1,000 mls @ 999 mls/hr IV .BOLUS ONE Stop: 06/20/16 09:49 Last Admin: 06/20/16 10:24 Dose: Not Given Oxytocin/Sodium Chloride (Pitocin In Ns 20 Units/1,000 Ml) Confirm Administered Dose 20 unit in 1,000 mls @ as directed .ROUTE .STK-MED ONE Stop: 06/20/16 09:05 Last Admin: 06/20/16 13:21 Dose: Not Given Ropivacaine (Naropin 0.2%) Confirm Administered Dose 100 mls @ as directed .ROUTE .STK-MED ONE Stop: 06/20/16 11:02 Ropivacaine (Naropin 0.2%) 100 mls @ 0 mls/hr EPIDUR ASDIRECTED CARLOS ALBERTO; Titrate PRN Reason: Protocol Oxytocin/Sodium Chloride (Pitocin In Ns 20 Units/1,000 Ml) 20 unit in 1,000 mls @ 2,997 mls/hr IV ONETIME ONE; 999 MUNITS/MIN PRN Reason: Protocol Stop: 06/20/16 03:20 Last Admin: 06/20/16 15:50 Dose: Not Given Ibuprofen (Motrin) Confirm Administered Dose 600 mg .ROUTE .STK-MED ONE Stop: 06/20/16 15:36 Last Admin: 06/20/16 15:41 Dose: Not Given Lidocaine HCl (Xylocaine 1%) Confirm Administered Dose 100 ml .ROUTE .STK-MED ONE Stop: 06/20/16 09:05 Last Admin: 06/20/16 15:40 Dose: Not Given Mineral Oil (Muri-Lube) Confirm Administered Dose 10 ml .ROUTE .STK-MED ONE Stop: 06/20/16 09:05 Last Admin: 06/20/16 15:40 Dose: Not Given Naloxone HCl (Narcan) Confirm Administered Dose 0.4 mg .ROUTE .STK-MED ONE Stop: 06/20/16 09:05 Last Admin: 06/20/16 15:40 Dose: Not Given Naloxone HCl (Narcan) 0.1 mg IVPUSH Q5M PRN PRN Reason: IF RESP RATE LESS THAN 6 - Interaction Infant Disposition, : [place] in Room with Family Interaction: Holding Infant Feeding: Breastfed Infant; Nursed Well, Continues to Breastfeed, Encouraged to Breastfeed Support Person: Sister, Significant Other - Recovery Exam Fundal Tone: Firm Fundal Level: 2 Fingerbreadths Below Umbilicus Fundal Placement: Midline Lochia Amount: Small Lochia Color: Rubra/Red Perineum Description: Intact, Minimal Bruising/Swelling Episiotomy/Laceration: Approximated (no hematoma noted on exam) Bladder Status: Nonpalpable - Exam General: alert, oriented HEENT: Pupils equal Neck: supple Lungs: Clear to auscultation, Normal respiratory effort Cardiovascular: Regular Rate, Regular Rhythm Abdomen: bowel sounds present, soft, no tenderness, no distension Extremities: no edema Skin: warm, dry, intact Wound/Incisions: healing well Neurological: no new focal deficit Psy/Mental Status: alert, normal affect, normal mood - Problem List & Annotations (1) SNOMED Code(s): 67962562 Code(s): Z33.1 - STATE, INCIDENTAL Status: Acute Current Visit: Yes Qualifiers: Weeks of gestation: 39 weeks Qualified Code(s): Z3A.39 - 39 weeks gestation of (2) Positive GBS test SNOMED Code(s): 0860164678879, 1434198847656 Code(s): B95.1 - STREPTOCOCCUS, GROUP B, CAUSING DISEASES CLASSD ELSWHR Status: Acute Current Visit: Yes (3) Active labor at term SNOMED Code(s): 20712402 Code(s): TTZ5831 - Status: Acute Current Visit: Yes (4) Normal vaginal delivery SNOMED Code(s): 44696638 Code(s): O80 - ENCOUNTER FOR FULL-TERM UNCOMPLICATED DELIVERY Status: Acute Current Visit: Yes (5) Perineal laceration SNOMED Code(s): 501559899 Code(s): S31.41XA - LACERATION W/O FOREIGN BODY OF VAGINA AND VULVA, INIT ENCNTR Status: Acute Current Visit: Yes Qualifiers: Encounter type: initial encounter Qualified Code(s): S31.41XA - Laceration without foreign body of vagina and vulva, initial encounter - Problem List Review Problem List Initiated/Reviewed/Updated: Yes - My Orders Last 24 Hours: My Active Orders 06/20/16 08:15 Patient Status [ADT] Routine Patient Status [ADT] Routine Notify Provider Vital Signs [RC] PRN 06/20/16 08:32 Ambulate [RC] PER UNIT ROUTINE Notify Provider [RC] PRN Up ad Claudia [RC] ASDIRECTED Vital Signs [RC] PER UNIT ROUTINE Acetaminophen [Tylenol] 650 mg PO Q4H PRN Ondansetron [Zofran] 4 mg IV Q4H PRN Sodium Chloride 0.9% [Saline Flush] 10 ml FLUSH ASDIRECTED PRN DVT/VTE Prophylaxis Reflex [OM.PC] Routine Saline Lock Insert [OM.PC] Routine Resuscitation Status Routine 06/20/16 08:34 VTE/DVT Education [RC] Click To Edit 06/20/16 08:49 Epidural Catheter Management [OM.PC] Stat 06/20/16 10:30 [place] Catheter Insertion [Insert Urinary Catheter] [OM.PC] Q24H 06/20/16 13:15 Oxytocin/Normal Saline [Pitocin in NS 20 Units/1,000 ML] 20 unit in 1,000 ml IV TITRATE 06/20/16 15:28 Patient Status [ADT] Routine Consult to Home Health [CONS] Routine Acetaminophen/HYDROcodone [[place]udson 325-5 MG] 1 - 2 tab PO Q4H PRN Benzocaine [Mfez-J-Ebpnmbx 20% Ayer] See Dose Instructions TOP Q4H PRN Docusate Sodium [Colace] 100 mg PO BID PRN Ibuprofen [Motrin] 600 mg PO Q6H PRN Lanolin [Lansinoh HPA] 0 gm TOP ASDIRECTED PRN Witch Cinthia [Tucks] 1 pad TOP ASDIRECTED PRN Assess Lochia [WOMSER] Per Unit Routine Assess Uterine Involution [WOMSER] Per Unit Routine 06/20/16 15:29 Ice Therapy [OM.PC] Per Unit Routine Perineal Care [OM.PC] Per Unit Routine Sitz Bath [OM.PC] Per Unit Routine 06/20/16 17:10 ANTIBODY IDENTIFICATION [BBK] Routine SCREEN [BBK] Routine RHOGAM, [RHIG WORKUP, ] [BBK] Routine 06/20/16 Dinner Regular Diet [DIET] - Assessment Assessment:: 06/20/2016 26 yo G3 now P3 now 39 4/7 gestation delivered a female in normal spontaneous vaginal delivery in ELAINA position at 1450 was placed on prewarmed blanket on mothers abdomen, delayed cord clamping , then cord was double clamped and cut by father of . was stimulated and warmed and cried out vigorously, 7/9/9, weight 8lbs 10oz, length 20.5 inches, three vessel cord. Placenta spontaneous intact and EBL-200 1st degree perineum tear repaired in usual fashion, no lacerations to cervix, labia or rectum noted. Mother in labor room stable and infant stable skin to skin. Labs-GBS positive, A positive, RPR nonreactive, Rubella nonimmune, HIV negative , Hep B negative 06/21/2016 Normal Day One Well Pernieal 1st degree repaired-minimal swelling, no sign of hematoma GBS positive-treated Fundus Firm-bleeding decreasing Plan discharge 48 hrs related to GBS status - Plan Plan:: 06/20/2016 26 yo came in this am in active labor. 39 4/7 gestational weeks today. States contractions started last night but did not get consistent till this am SVE- with a bulgy bag of [place] Admit for active labor at this time Labs-O negative, GBS positive, RPR nonreactive, Hep B negative, HIV negative, Rubella Immune Plan- Monitor active labor Up and about as patient desires FHTS monitor continuously Epidural for pain control per patient request Plan and anticipate a vaginal delivery 06/20/2016 Routine cares Rhogam work up if needed Ice, tucks, spray to laceration Monitor fundus and bleeding routinely Oral pain medications as needed Encourage and support Plan discharge 48hrs due to GBS status 06/21/2016 Continue Routine Cares Monitor Perineum for swelling-use ice, tucks, spray as needed Oral Pain Medication as needed Monitor fundus and bleeding per routine Continue Encourage and Support Plan discharge tomorrow at 48 hrs due to GBS
[2016-06-22 05:27] VITALS: BP 115/80
[2016-06-22] MEDS: Ibuprofen 600 MG Tab PO PRN (08:55)
--- NOTE | 2016-06-22 08:55 | PCM.PNPP ---
- General Info Date of Service: 06/22/16 (PPD 2 D/C) Admission Dx/Problem (Free Text): Patient Status Order with Admit Dx/Problem 06/20/16 08:15 Patient Status [ADT] Routine Patient Status [ADT] Routine Admission Diagnosis/Problem Admission Diagnosis/Problem Functional Status: Reports: pain controlled - Review of Systems General: Reports: No Symptoms HEENT: Reports: no symptoms Pulmonary: Reports: no symptoms Cardiovascular: Reports: No Symptoms Gastrointestinal: Reports: No symptoms Genitourinary: Reports: no symptoms Musculoskeletal: Reports: no symptoms Skin: Reports: no symptoms Neurological: Reports: No Symptoms Psychiatric: Reports: no symptoms Systems Review Comment:: Cramping this morning - General Info Date of Service: 06/22/16 - Patient Data Vital Signs - most recent: Last Vital Signs Temp 97.7 F 06/22/16 02:00 Pulse 62 06/22/16 02:00 Resp 16 06/22/16 02:00 BP 115/80 06/22/16 02:00 Pulse Ox 99 06/22/16 02:00 Weight - most recent: 155 lb I&O - last 24 hours: Intake & Output 06/21/16 06/22/16 06/22/16 22:59 06:59 14:59 Intake Total 1200 Balance 1200 Med Orders - Current: Current Medications Acetaminophen (Tylenol) 650 mg PO Q4H PRN PRN Reason: Pain (Mild 1-3) and fever Hydrocodone Bitart/Acetaminophen ([place] 325-5 Mg) 1 - 2 tab PO Q4H PRN PRN Reason: Pain (moderate 4-6) Last Admin: 06/21/16 23:32 Dose: 2 tab Benzocaine (Xvsb-J-Pedjiub 20% Depauw) 0 gm TOP Q4H PRN PRN Reason: Perineal Comfort Measure Docusate Sodium (Colace) 100 mg PO BID PRN PRN Reason: Constipation Emollient Ointment (Lansinoh Hpa) 0 gm TOP ASDIRECTED PRN PRN Reason: Sore Nipples Ibuprofen (Motrin) 600 mg PO Q6H PRN PRN Reason: mild pain or fever Last Admin: 06/21/16 19:40 Dose: 600 mg Ondansetron HCl (Zofran) 4 mg IV Q4H PRN PRN Reason: Nausea/Vomiting Sodium Chloride (Saline Flush) 10 ml FLUSH ASDIRECTED PRN PRN Reason: Keep Vein Open Witdinora Vicente (Tucks) 1 pad TOP ASDIRECTED PRN PRN Reason: Hemorrhoids Discontinued Medications Diphenhydramine HCl (Benadryl) 25 mg IVPUSH Q6H PRN PRN Reason: ITCHING Ephedrine Sulfate (Ephedrine Sulfate) Confirm Administered Dose 50 mg .ROUTE .STK-MED ONE Stop: 06/20/16 09:54 Last Admin: 06/20/16 10:06 Dose: 5 mg Ephedrine Sulfate (Ephedrine Sulfate) 5 - 10 mg IVPUSH ASDIRECTED PRN PRN Reason: IF SYSTOLIC BP LESS THAN 100 Fentanyl (Sublimaze) 100 mcg IVPUSH Q1H PRN PRN Reason: Pain (moderate 4-6) Penicillin G Potassium 5 (millunits/ Sodium Chloride) 100 mls @ 100 mls/hr IV ONETIME ONE Stop: 06/20/16 09:29 Last Admin: 06/20/16 08:44 Dose: 100 mls/hr Lactated Ringer's (Ringers, Lactated) 1,000 mls @ 999 mls/hr IV BOLUS ONE Stop: 06/20/16 09:30 Last Admin: 06/20/16 08:25 Dose: 999 mls/hr Lactated Ringer's (Ringers, Lactated) 1,000 mls @ 125 mls/hr IV ASDIRECTED [facility] Last Admin: 06/20/16 09:55 Dose: 125 mls/hr Penicillin G Potassium 2.5 (millunits/ Sodium Chloride) 50 mls @ 100 mls/hr IV Q4H [facility] Last Admin: 06/20/16 11:59 Dose: 100 mls/hr Lactated Ringer's (Ringers, Lactated) 1,000 mls @ 999 mls/hr IV .BOLUS ONE Stop: 06/20/16 09:49 Last Admin: 06/20/16 10:24 Dose: Not Given Oxytocin/Sodium Chloride (Pitocin In Ns 20 Units/1,000 Ml) Confirm Administered Dose 20 unit in 1,000 mls @ as directed .ROUTE .STK-MED ONE Stop: 06/20/16 09:05 Last Admin: 06/20/16 13:21 Dose: Not Given Ropivacaine (Naropin 0.2%) Confirm Administered Dose 100 mls @ as directed .ROUTE .STK-MED ONE Stop: 06/20/16 11:02 Ropivacaine (Naropin 0.2%) 100 mls @ 0 mls/hr EPIDUR ASDIRECTED CARLOS ALBERTO; Titrate PRN Reason: Protocol Oxytocin/Sodium Chloride (Pitocin In Ns 20 Units/1,000 Ml) 20 unit in 1,000 mls @ 6 mls/hr IV TITRATE CARLOS ALBERTO; 2 MUNITS/MIN PRN Reason: Protocol Last Titration: 06/20/16 15:30 Dose: 125 mls/hr Oxytocin/Sodium Chloride (Pitocin In Ns 20 Units/1,000 Ml) 20 unit in 1,000 mls @ 2,997 mls/hr IV ONETIME ONE; 999 MUNITS/MIN PRN Reason: Protocol Stop: 06/20/16 03:20 Last Admin: 06/20/16 15:50 Dose: Not Given Ibuprofen (Motrin) Confirm Administered Dose 600 mg .ROUTE .STK-MED ONE Stop: 06/20/16 15:36 Last Admin: 06/20/16 15:41 Dose: Not Given Lidocaine HCl (Xylocaine 1%) Confirm Administered Dose 100 ml .ROUTE .STK-MED ONE Stop: 06/20/16 09:05 Last Admin: 06/20/16 15:40 Dose: Not Given Mineral Oil (Muri-Lube) Confirm Administered Dose 10 ml .ROUTE .STK-MED ONE Stop: 06/20/16 09:05 Last Admin: 06/20/16 15:40 Dose: Not Given Naloxone HCl (Narcan) Confirm Administered Dose 0.4 mg .ROUTE .STK-MED ONE Stop: 06/20/16 09:05 Last Admin: 06/20/16 15:40 Dose: Not Given Naloxone HCl (Narcan) 0.1 mg IVPUSH Q5M PRN PRN Reason: IF RESP RATE LESS THAN 6 - Interaction Disposition, : [place] in Room with Family Interaction: Holding Infant Feeding: Breastfed ; Nursed Well, Continues to Breastfeed, Encouraged to Breastfeed Support Person: Sister, Significant Other - Recovery Exam Fundal Tone: Firm Fundal Level: 3 Fingerbreadths Below Umbilicus Fundal Placement: Midline Lochia Amount: Small Lochia Color: Rubra/Red Perineum Description: Intact, Minimal Bruising/Swelling Episiotomy/Laceration: Approximated Bladder Status: Voiding - Exam General: alert, oriented HEENT: Pupils equal Neck: supple Lungs: Clear to auscultation, Normal respiratory effort Cardiovascular: Regular Rate, Regular Rhythm Abdomen: bowel sounds present, soft, no tenderness, no distension Extremities: no edema Skin: warm, dry, intact Wound/Incisions: healing well Neurological: no new focal deficit Psy/Mental Status: alert, normal affect, normal mood - Problem List & Annotations (1) SNOMED Code(s): 61575364 Code(s): Z33.1 - STATE, INCIDENTAL Status: Acute Current Visit: Yes Qualifiers: Weeks of gestation: 39 weeks Qualified Code(s): Z3A.39 - 39 weeks gestation of (2) Positive GBS test SNOMED Code(s): 4690571631796, 2500175217794 Code(s): B95.1 - STREPTOCOCCUS, GROUP B, CAUSING DISEASES CLASSD ELSWHR Status: Acute Current Visit: Yes (3) Active labor at term SNOMED Code(s): 68658059 Code(s): KUD7840 - Status: Acute Current Visit: Yes (4) Normal vaginal delivery SNOMED Code(s): 78487879 Code(s): O80 - ENCOUNTER FOR FULL-TERM UNCOMPLICATED DELIVERY Status: Acute Current Visit: Yes (5) Perineal laceration SNOMED Code(s): 153933439 Code(s): S31.41XA - LACERATION W/O FOREIGN BODY OF VAGINA AND VULVA, INIT ENCNTR Status: Acute Current Visit: Yes Qualifiers: Encounter type: initial encounter Qualified Code(s): S31.41XA - Laceration without foreign body of vagina and vulva, initial encounter - Problem List Review Problem List Initiated/Reviewed/Updated: Yes - Assessment Assessment:: 06/20/2016 26 yo G3 now P3 now 39 4/7 gestation delivered a female in normal spontaneous vaginal delivery in ELAINA position at 1450 Infant was placed on prewarmed blanket on mothers abdomen, delayed cord clamping , then cord was double clamped and cut by father of infant. Infant was stimulated and warmed and cried out vigorously, 7/9/9, weight 8lbs 10oz, length 20.5 inches, three vessel cord. Placenta spontaneous intact and EBL-200 1st degree perineum tear repaired in usual fashion, no lacerations to cervix, labia or rectum noted. Mother in labor room stable and infant stable skin to skin. Labs-GBS positive, A positive, RPR nonreactive, Rubella nonimmune, HIV negative , Hep B negative 06/21/2016 Normal Day One Well Pernieal 1st degree repaired-minimal swelling, no sign of hematoma GBS positive-treated Fundus Firm-bleeding decreasing Plan discharge 48 hrs related to GBS status 06/22/16 Discharge day Doing well, crampy this morning No milk yet, but baby nursing well No pain at repair site and bleeding is light, voiding without problem. Wants to go home - Plan Plan:: 06/20/2016 26 yo came in this am in active labor. 39 4/7 gestational weeks today. States contractions started last night but did not get consistent till this am SVE-/0 with a bulgy bag of [place] Admit for active labor at this time Labs-O negative, GBS positive, RPR nonreactive, Hep B negative, HIV negative, Rubella Immune Plan- Monitor active labor Up and about as patient desires FHTS monitor continuously Epidural for pain control per patient request Plan and anticipate a vaginal delivery 06/20/2016 Routine cares Rhogam work up if needed Ice, tucks, spray to laceration Monitor fundus and bleeding routinely Oral pain medications as needed Encourage and support Plan discharge 48hrs due to GBS status 06/21/2016 Continue Routine Cares Monitor Perineum for swelling-use ice, tucks, spray as needed Oral Pain Medication as needed Monitor fundus and bleeding per routine Continue Encourage and Support Plan discharge tomorrow at 48 hrs due to GBS 06/22/16 Home today See me in 6 weeks for a post visit encouraged non smoking take NSAID every 8 hours for the next few days daily sitz bath times one week 30 minutes for post education done today.
== END 2016-06-22 12:25 | disposition home or self-care (01) | DRG 775 ==
LOC: JP.OBCHECK 08:03 → JP.OB 08:22 → OBSVTOIN 14:50 → JP.OB 14:50 → JP.MS 18:17
PROVIDERS: ADMIT Advanced Practice Midwife; ATTEND Advanced Practice Midwife
PROC: 10E0XZZ Delivery of Products of Conception, External Approach (ICD-10-PCS; principal; 2016-06-20)
PROC: 10907ZC Drainage of Amniotic Fluid, Therapeutic from Products of Conception, Via Natural or Artificial Opening (ICD-10-PCS; 2016-06-20)
PROC: 0HQ9XZZ Repair Perineum Skin, External Approach (ICD-10-PCS; 2016-06-20)
PROC: 00HU33Z Insertion of Infusion Device into Spinal Canal, Percutaneous Approach (ICD-10-PCS; 2016-06-20)
DX: O69.81X0 Labor and delivery complicated by cord around neck, without compression, not applicable or unspecified (principal); O99.824 Streptococcus B carrier state complicating childbirth; O70.0 First degree perineal laceration during delivery; Z3A.39 39 weeks gestation of pregnancy; Z37.0 Single live birth
CPT/HCPCS: 36415; 80305; 81001; 85025; 85027; 85460; 86850; 86900; 86901; A9270-GY; J2540; J2590; J2790; J2795; J7030; J7050; J7120

== ENCOUNTER 2016-11-03 05:02 | Emergency (ER) | payer MEDICAID ==
[2016-11-03] MEDS ORDERED: HYDROmorphone 1 MG/ML Syringe IVPUSH ONE (05:59)
[2016-11-03] MEDS ORDERED: Acetaminophen 500 MG Tab PO ONE (05:59)
[2016-11-03] MEDS ORDERED: Lactated Ringers 1,000 ML IV SCH ×2 (06:00→08:00)
[2016-11-03] MEDS ORDERED: Lidocaine 1% with EPINEPHrine 1:100,000 50 ML MDV INFILT STA (06:04)
[2016-11-03] MEDS ORDERED: Metoclopramide 10 MG/2 ML SDV IVPUSH ONE (06:06)
--- NOTE | 2016-11-03 07:11 | EDM.PDOC ---
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 She is a 2 , breast feeding, w/o resumption of menses mother of healthy infant. She noted a plugged milk duct last week, and attempted to express after hot showers. She reports intermittent fevers over the last week, with profound fatigue, myalgias , chills (but not true rigors), and progressively severe L breast pain. She has had a productive cough with associated nasal congestion and sore throat for the last few days. She also complains of a severe headache with associated photophobia and neck stiffness/pain for the last two days. The headache is similar to, but more severe than prior migraine headaches. It was not sudden onset. She has been anorexic and nauseated, with decreased PO intake the last few days. She had a single episode of emesis shortly prior to presentation. She denies diarrhea. She has had no dysuria or other irritative voiding symptoms, but has noted a decrease in urine output the last 2 days. In addition , she has diffuse myalgias, w/o arthralgias. She endorses orthostatic symptoms. Breast milk production, and her baby's UOP have been preserved. She is currently self-treating a vaginal yeast infection, has noted no other vaginal discharge and denies dysparunia. She complains of frontal headache/ pressure, but no other facial/dental pain. She has no abdominal pain. Onset: Gradual Severity: Moderate Improves with: Reports: None Worsens with: Reports: None Associated Symptoms: Reports: Cough, Diaphoresis, Fever/Chills, Headaches, Loss of Appetite, Malaise, Nausea/Vomiting, Weakness. 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/BYN History: RAYSA-06/23/2016 - Infectious Disease History Infectious Disease History: Reports: Chicken Pox Social & Family History - Tobacco Use Smoking Status *Q: Unknown Ever Smoked Years of Tobacco use: 5 Packs/Tins Daily: 1 Used Tobacco, but Quit: Yes Month Tobacco Last Used: 09/2015 Second Hand Smoke Exposure: No - Alcohol Use Days Per Week of Alcohol Use: 2 Number of Drinks Per Day: 4 Total Drinks Per Week: 8 - Recreational Drug Use Recreational Drug Use: No ED ROS GENERAL - Review of Systems Review Of Systems: See Below Constitutional: Reports: Fever, Chills, Malaise, Weakness, Fatigue, Night Sweats , Diaphoresis, Decreased Appetite HEENT: Reports: Ear Pain, Rhinitis, Sinus Problem, Throat Pain. Denies: Dental Pain, Eye Discharge Respiratory: Reports: Cough, Sputum Cardiovascular: Reports: Chest Pain (left breast/chest wall) Endocrine: Reports: No Symptoms GI/Abdominal: Reports: Anorexia. Denies: Abdominal Pain, Black Stool, Bloody Stool, Diarrhea : Denies: Discharge, Dysuria, Flank Pain, Frequency, Urgency Musculoskeletal: Reports: Neck Pain, Shoulder Pain, Arm Pain, Back Pain, Leg Pain (no localized calf pain or swelling) Skin: Denies: Bruising, Pruritis Neurological: Reports: Headache. Denies: Syncope Psychiatric: Reports: No Symptoms Hematologic/Lymphatic: Reports: No Symptoms Immunologic: Reports: No Symptoms ED EXAM, GI/ABD - Physical Exam Exam: See Below Text/Narrative:: Patient in mild distress, obviously very uncomfortable, flushed, diaphoretic, moderately toxic appearing. Neck is supple, decreased AROM/PROM, neg Brudzinski/Kernig sign. Clearly photophobic, sclera anicteric. Left breast is erythematous, with localized area of induration with overlying erythema left outer quad. Exam limited by patient discomfort, breast is diffusely very tender to even light palpation. Patient shows reluctance to use LUE/splinting due to pain. Exam Limited By: No Limitations General Appearance: Alert, WD/WN, Anxious, Moderate Distress, Thin. No: Lethargic, Obtunded Eyes: Bilateral: Normal Appearance, EOMI Ears: Normal External Exam, Normal Canal, Hearing Grossly Normal, Normal TMs Nose: Normal Inspection, Normal Mucosa, No Blood. No: Nasal Tenderness, Nasal Drainage Throat/Mouth: Normal Inspection, Normal Lips, Normal Teeth, Normal Gums, Normal Voice, No Airway Compromise, Inflammation Head: Atraumatic, Normocephalic. No: Facial Swelling, Sinus Tenderness Neck: Normal Inspection, Non-Tender, Limited Range of Motion Respiratory/Chest: No Respiratory Distress, Lungs Clear, Normal Breath Sounds, No Accessory Muscle Use. No: Respiratory Distress, Rales, Rhonchi, Wheezing Cardiovascular: Normal Peripheral Pulses, No Edema, No Murmur, No Rub, Tachycardia. No: JVD GI/Abdominal Exam: Normal Bowel Sounds, Soft, Non-Tender, No Organomegaly, No Distention, No Abnormal Bruit, No Mass, Pelvis Stable Back Exam: Normal Inspection, Full Range of Motion. No: CVA Tenderness (R), CVA Tenderness (L) Extremities: Normal Inspection, Normal Range of Motion, Non-Tender, No Pedal Edema, Slow Capillary Refill, Increased Warmth. No: Krys's Sign Neurological: Alert, Oriented, CN II-XII Intact, Normal Cognition, Normal Gait, Normal Reflexes, No Motor/Sensory Deficits Psychiatric: Normal Affect, Anxious Skin Exam: Warm, Intact, No Rash, Diaphoretic, Erythema, Increased Warmth. No: Ecchymosis, Lymphangitis, Mottled, Petechiae Lymphatic: Adenopathy (L axillary and posterior cervical) ED ABDOMINAL/GI PROCEDURES - Additional/Other Procedure(s) Procedure(s) (Free Text): Lumbar puncture: Risks, benefits and alternatives, including doing nothing/treating for meningitis empirically, were discussed with patient and her . She elected to have the procedure. Skin was prepped with hibiclens and anaesthetized with 1.5 cc lidocaine with epinephrine. Skin was re-prepped with betadine, additional 1cc plain lidocaine infiltrated. In a sterile fashion, a 23 ga spinal needle was inserted into the L34 space with return of clear CSF. Opening pressure was 7cm H2O. Course - Vital Signs Last Recorded V/S: Last Vital Signs Temp 37.3 C 11/03/16 06:54 Pulse 92 11/03/16 06:54 Resp 15 11/03/16 06:54 BP 104/53 L 11/03/16 06:54 Pulse Ox 96 11/03/16 06:54 - Orders/Labs/Meds Orders: Active Orders 24 hr Category Date Time Status Verify Patient Consent Obtain [RC] ASDIRECTED Care 11/03/16 08:09 Active Breast Complete Lt [US] Stat Exams 11/03/16 06:03 Taken CXR [Chest 2V] [CR] Stat Exams 11/03/16 06:03 Ordered CULTURE CSF + SMEAR [RM] Stat Lab 11/03/16 06:58 Results Lactated Ringers [Ringers, Lactated] 1,000 ml Med 11/03/16 06:00 Active IV ASDIRECTED Lactated Ringers [Ringers, Lactated] 1,000 ml Med 11/03/16 08:00 Active IV ASDIRECTED Medication Administration Instruction [OM.PC] Routine Oth 11/03/16 08:09 Ordered Medication Orders Lactated Ringer's (Ringers, Lactated) 1,000 mls @ 999 mls/hr IV ASDIRECTED CARLOS ALBERTO Last Admin: 11/03/16 06:16 Dose: 999 mls/hr Lactated Ringer's (Ringers, Lactated) 1,000 mls @ 500 mls/hr IV ASDIRECTED CARLOS ALBERTO Last Admin: 11/03/16 08:04 Dose: 500 mls/hr Labs: Laboratory Tests 11/03/16 11/03/16 11/03/16 Range/Units 06:15 06:15 06:58 WBC 9.5 (4.5-11.0) K/uL RBC 4.96 (3.30-5.50) M/uL Hgb 15.0 D (12.0-15.0) g/dL Hct 44.4 (36.0-48.0) % MCV 90 (80-98) fL MCH 30 (27-31) pg MCHC 34 (32-36) % Plt Count 199 (150-400) K/uL Neut % (Auto) 77 H (36-66) % Lymph % (Auto) 11 L (24-44) % [place] % (Auto) 9 H (2-6) % Eos % (Auto) 4 (2-4) % Baso % (Auto) 1 (0-1) % Sodium 139 L (140-148) mmol/L Potassium 3.8 (3.6-5.2) mmol/L Chloride 102 (100-108) mmol/L Carbon Dioxide 26 (21-32) mmol/L Anion Gap 14.8 H (5.0-14.0) mmol/L BUN 13 (7-18) mg/dL Creatinine 0.6 (0.6-1.0) mg/dL Est Cr Clr Drug Dosing 128.48 mL/min Estimated GFR (MDRD) > 60 (>60) Glucose 96 (74-106) mg/dL Calcium 9.0 (8.5-10.1) mg/dL Urine Color Urine Appearance Urine pH (4.5-8.0) Ur Specific [place] (1.008-1.030) Urine Protein (NEGATIVE) mg/dL Urine Glucose (UA) (NEGATIVE) mg/dL Urine Ketones (NEGATIVE) mg/dL Urine Occult Blood (NEGATIVE) Urine Nitrite (NEGATIVE) Urine Bilirubin (NEGATIVE) Urine Urobilinogen (NORMAL) mg/dL Ur Leukocyte Esterase (NEGATIVE) Urine RBC (0-5) Urine WBC (0-5) Ur Epithelial Cells Amorphous Sediment Urine Bacteria Urine Mucus Urine Other Urine HCG, Qual CSF Tube Number 2 CSF Volume 1 mls CSF Appearance Clear (CLEAR) CSF Color Colorless (COLORLESS) CSF WBC 5 (0-5) /ul CSF RBC 2 H (0-0) /ul CSF Mononuclear Cells 100 (54-100) % CSF Polymorphonuclear 0 (0-7) % CSF Glucose (40-70) mg/dL CSF Total Protein (15-45) mg/dL 11/03/16 11/03/16 11/03/16 Range/Units 07:05 08:29 08:29 WBC (4.5-11.0) K/uL RBC (3.30-5.50) M/uL Hgb (12.0-15.0) g/dL Hct (36.0-48.0) % MCV (80-98) fL MCH (27-31) pg MCHC (32-36) % Plt Count (150-400) K/uL Neut % (Auto) (36-66) % Lymph % (Auto) (24-44) % Canadian % (Auto) (2-6) % Eos % (Auto) (2-4) % Baso % (Auto) (0-1) % Sodium (140-148) mmol/L Potassium (3.6-5.2) mmol/L Chloride (100-108) mmol/L Carbon Dioxide (21-32) mmol/L Anion Gap (5.0-14.0) mmol/L BUN (7-18) mg/dL Creatinine (0.6-1.0) mg/dL Est Cr Clr Drug Dosing mL/min Estimated GFR (MDRD) (>60) Glucose (74-106) mg/dL Calcium (8.5-10.1) mg/dL Urine Color Yellow Urine Appearance Cloudy Urine pH 5.0 (4.5-8.0) Ur Specific [place] 1.025 (1.008-1.030) Urine Protein Negative (NEGATIVE) mg/dL Urine Glucose (UA) Normal (NEGATIVE) mg/dL Urine Ketones 15 H (NEGATIVE) mg/dL Urine Occult Blood Negative (NEGATIVE) Urine Nitrite Negative (NEGATIVE) Urine Bilirubin Small (NEGATIVE) Urine Urobilinogen Normal (NORMAL) mg/dL Ur Leukocyte Esterase Negative (NEGATIVE) Urine RBC 0-5 (0-5) Urine WBC 0-5 (0-5) Ur Epithelial Cells Few Amorphous Sediment Not seen Urine Bacteria Rare Urine Mucus Many Urine Other Urine HCG, Qual Negative CSF Tube Number CSF Volume mls CSF Appearance (CLEAR) CSF Color (COLORLESS) CSF WBC (0-5) /ul CSF RBC (0-0) /ul CSF Mononuclear Cells (54-100) % CSF Polymorphonuclear (0-7) % CSF Glucose 58 (40-70) mg/dL CSF Total Protein 56.5 H (15-45) mg/dL Meds: Medications Generic Name Dose Route Start Last Admin Trade Name Freq PRN Reason Stop Dose Admin Lactated Ringer's 1,000 mls @ 999 mls/hr 11/03/16 06:00 11/03/16 06:16 Ringers, Lactated IV 999 mls/hr ASDIRECTED CARLOS ALBERTO Administration Lactated Ringer's 1,000 mls @ 500 mls/hr 11/03/16 08:00 11/03/16 08:04 Ringers, Lactated IV 500 mls/hr ASDIRECTED CARLOS ALBERTO Administration Discontinued Medications Generic Name Dose Route Start Last Admin Trade Name Freq PRN Reason Stop Dose Admin Acetaminophen 1,000 mg 11/03/16 05:59 11/03/16 06:52 Tylenol Extra Strength PO 11/03/16 06:00 1,000 mg ONETIME ONE Administration Hydromorphone HCl 1 mg 11/03/16 05:59 11/03/16 06:46 Dilaudid IVPUSH 11/03/16 06:00 1 mg ONETIME ONE Administration Cefazolin Sodium 2 gm/ Sodium 50 mls @ 100 mls/hr 11/03/16 08:00 11/03/16 08: 06 Chloride IV 11/03/16 08:29 100 mls/hr ONETIME ONE Administration Lidocaine/Epinephrine 20 ml 11/03/16 06:04 11/03/16 06:52 Xylocaine 1% With Epinephrine 1:100,000 INFILT 11/03/16 06:05 20 ml STAT STA Administration Metoclopramide HCl 10 mg 11/03/16 06:06 11/03/16 06:50 Reglan IVPUSH 11/03/16 06:07 10 mg ONETIME ONE Administration - Re-Assessments/Exams Free Text/Narrative Re-Assessment/Exam: 11/03/16 07:55 Much improved, headache resolved. Requests additional IV fluids. Departure - Departure Time of Disposition: 09:38 Disposition: Home, Self-Care 01 Condition: Good Clinical Impression: Mastitis, acute - Discharge Information Instructions: Mastitis, [id number] Referrals: Sabrina Gallegos CNM [Primary Care Provider] - 2 Days (Started on cephalexin for mastitis, please evaluate response.) Forms: ED Department Discharge Additional Instructions: Continue to breast feed. If you need to take more than 5 oxycodone tablets a day, pump breast milk and discard. Use formula for your son. Stop if your baby seems overly sleepy or unresponsive. Call your clinic to arrange followup. You should be getting better in the next three days. If you are not, you may need a change in antibiotic. Return to emergency department for severe headache, particularly if worse when you stand up. Return to emergency department if you get worse, have new problems, are not able to keep up with oral fluid intake, or have recurrent vomiting. Take cephalexin four times a day. - My Orders Last 24 Hours: My Active Orders 11/03/16 06:00 Lactated Ringers [Ringers, Lactated] 1,000 ml IV ASDIRECTED 11/03/16 06:03 Breast Complete Lt [US] Stat CXR [Chest 2V] [CR] Stat 11/03/16 06:58 CULTURE CSF + SMEAR [RM] Stat 11/03/16 08:00 Lactated Ringers [Ringers, Lactated] 1,000 ml IV ASDIRECTED 11/03/16 08:09 Verify Patient Consent Obtain [RC] ASDIRECTED Medication Administration Instruction [OM.PC] Routine - Assessment/Plan Last 24 Hours: My Active Orders 11/03/16 06:00 Lactated Ringers [Ringers, Lactated] 1,000 ml IV ASDIRECTED 11/03/16 06:03 Breast Complete Lt [US] Stat CXR [Chest 2V] [CR] Stat 11/03/16 06:58 CULTURE CSF + SMEAR [RM] Stat 11/03/16 08:00 Lactated Ringers [Ringers, Lactated] 1,000 ml IV ASDIRECTED 11/03/16 08:09 Verify Patient Consent Obtain [RC] ASDIRECTED Medication Administration Instruction [OM.PC] Routine Assessment:: Patient presents with myriad s/sx. Due to s/sx suggestive of meningitis LP performed (showed no evidence of infection), in part of avoid possibility of future concerns of partially treated disease. Headache/photophobia likely due to migraine headache. Moderate dehydration evident, and labs c/w contraction alkalosis w/o metabolic acidosis. Ultrasound did not show evidence of abscess. Plan: Will treat for mastitis and have close followup. Rx cephalexin, oxycodone 5-10mg q4h PRN pain #30 given. Advised to quit smoking.
[2016-11-03] MEDS ORDERED: ceFAZolin 2 GM in Premix Bag 1 BAG IV ONE (07:39)
[2016-11-03] MEDS ORDERED: ceFAZolin 2 GM in Sodium Chloride 0.9% 50 ML IV ONE (08:00)
[2016-11-03 09:55] VITALS: BP 118/64
--- NOTE | 2016-11-04 09:12 | US ---
Breast Complete Lt INDICATION: r/o abscess FINDINGS: Normal left breast parenchyma. No evidence for focal fluid collection or abscess. IMPRESSION: No evidence for focal fluid collection or abscess. BI-RADS 1, negative.
== END 2016-11-03 09:55 | disposition home or self-care (01) ==
LOC: JP.ED 05:02
DX: N61.0 Mastitis without abscess (principal); Z87.891 Personal history of nicotine dependence; Z79.899 Other long term (current) drug therapy
CPT/HCPCS: 36415; 62270; 76641; 80048; 81001; 81025; 82945; 84157; 85025; 87070; 87205; 89050; 96365; 96375; 99284; A9270; J0690; J1170; J2765; J7050; J7120

== ENCOUNTER 2018-06-21 11:23 | Emergency (ER) | payer MEDICAID ==
[2018-06-21] MEDS ORDERED: Acetaminophen 500 MG Tab PO ONE ×2 (12:16→13:00)
--- NOTE | 2018-06-21 12:17 | EDM.PDOC ---
ED HPI GENERAL MEDICAL PROBLEM - General Chief Complaint: Respiratory Problem Stated Complaint: HARD TIME BREATHING Time Seen by Provider: 06/21/18 12:10 Source of Information: Reports: Patient, Old Records, RN History Limitations: Reports: No Limitations - History of Present Illness INITIAL COMMENTS - FREE TEXT/NARRATIVE: 28 yo female presents with facial pressure, sore throat and body aches. No known exposures. Nasal discharge is clear. Had some chest tightness earlier today at home. No self tx. Onset of sx's yesterday. Onset: Gradual Onset Date: 06/20/18 Duration: Day(s): (1), Constant Location: Reports: Generalized Quality: Reports: Ache Severity: Moderate Improves with: Reports: None Worsens with: Reports: None Context: Reports: Other (uncertain) Associated Symptoms: Reports: Chest Pain (tight this am, not now), Cough (rare, dry), Shortness of Breath (hard to breath this am, not a problem now.). 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 Denies: Dental Pain, Ear Discharge, Ear Pain, Nosebleed, Nose Pain, Throat Pain, Throat Swelling Respiratory: Reports: Cough (rare, dry.). Denies: Shortness of Breath (hard to breath this am due to tightness, now resolved.), Wheezing, Pleuritic Chest Pain , Sputum, Hemoptysis Cardiovascular: Reports: Chest Pain (earlier, tight). Denies: Claudication, Dyspnea on Exertion, Lightheadedness, Orthopnea, Palpitations, Syncope Endocrine: Reports: No Symptoms GI/Abdominal: Reports: No Symptoms : Reports: No Symptoms Musculoskeletal: Reports: No Symptoms Skin: Reports: No Symptoms Neurological: Reports: No Symptoms ED EXAM, GENERAL - Physical Exam Exam: See Below Exam Limited By: No Limitations General Appearance: Alert, WD/WN, No Apparent Distress Eye Exam: Bilateral Eye: Normal Inspection Ears: Normal External Exam, Normal Canal, Hearing Grossly Normal, Normal TMs Ear Exam: Bilateral Ear: Auricle Normal, Canal Normal, TM normal Nose: Normal Inspection, No Blood Throat/Mouth: Normal Inspection, Normal Lips, Normal Oropharynx, Normal Voice, No Airway Compromise Head: Atraumatic, Normocephalic Neck: Normal Inspection, Supple, Non-Tender Respiratory/Chest: No Respiratory Distress, Lungs Clear, Normal Breath Sounds, No Accessory Muscle Use Cardiovascular: Regular Rate, Rhythm, No Edema GI/Abdominal: Normal Bowel Sounds, Soft, Non-Tender, No Distention Back Exam: Normal Inspection. No: CVA Tenderness (R), CVA Tenderness (L) Neurological: Alert, Oriented, CN II-XII Intact, Normal Cognition, No Motor/ Sensory Deficits Psychiatric: Normal Affect, Normal Mood Skin Exam: Warm, Dry, Intact, Normal Color, No Rash Lymphatic: Adenopathy Course - Vital Signs Text/Narrative:: Did not complain of nausea intially, but vomited her acetaminophen we gave. Zofran ODT 4 mg SL was then given. Last Recorded V/S: Last Vital Signs Temp 36.9 C 06/21/18 11:47 Pulse 82 06/21/18 11:47 Resp 17 06/21/18 11:47 BP 132/82 06/21/18 11:47 Pulse Ox 98 06/21/18 11:47 - Orders/Labs/Meds Labs: Laboratory Tests 06/21/18 Range/Units 12:17 WBC 10.8 (4.5-11.0) K/uL RBC 4.84 (3.30-5.50) M/uL Hgb 14.6 (12.0-15.0) g/dL Hct 44.0 (36.0-48.0) % MCV 91 (80-98) fL MCH 30 (27-31) pg MCHC 33 (32-36) % Plt Count 239 (150-400) K/uL Meds: Medications Discontinued Medications Generic Name Dose Route Start Last Admin Trade Name Freq PRN Reason Stop Dose Admin Acetaminophen 1,000 mg 06/21/18 12:16 06/21/18 12:28 Tylenol Extra Strength PO 06/21/18 12:17 1,000 mg ONETIME ONE Administration Ondansetron HCl 4 mg 06/21/18 12:48 06/21/18 12:51 Zofran Odt PO 06/21/18 12:49 4 mg ONETIME ONE Administration Departure - Departure Time of Disposition: 12:57 Disposition: Home, Self-Care 01 Condition: Good Clinical Impression: Viral syndrome - Discharge Information *PRESCRIPTION DRUG MONITORING PROGRAM REVIEWED*: No *COPY OF PRESCRIPTION DRUG MONITORING REPORT IN PATIENT MIRELLA: No Prescriptions: Ondansetron [Zofran ODT] 4 mg PO Q6H PRN #7 tab.dis PRN Reason: Nausea Instructions: Viral Illness, Adult Referrals: Sabrina Gallegos CNM [Primary Care Provider] - Forms: ED Department Discharge Additional Instructions: Take acetaminophen as needed for pain/ body aches. Drink ample fluids. Get plenty of rest. Hand washing to prevent spread. Use Zofran as needed every 6 hrs for nausea control. Recheck if worse.
[2018-06-21] MEDS ORDERED: Ondansetron 4 MG Tab.DIS PO ONE (12:48)
[2018-06-21 13:10] VITALS: BP 108/60
== END 2018-06-21 13:20 | disposition home or self-care (01) ==
LOC: JP.ED 11:23
DX: B34.9 Viral infection, unspecified (principal)
CPT/HCPCS: 36415; 85027; 87804; 99283; A9270

== ENCOUNTER 2019-08-05 04:50 | Emergency (ER) | payer MEDICAID ==
[2019-08-05] MEDS ORDERED: Bacitracin Oint 1 GM U/D Packet TOP ONE (04:59)
[2019-08-05 05:00] VITALS: BP 156/105; PULSE 133
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
== END 2019-08-05 05:46 ==
LOC: JP.ED 04:50
DX: S61.216A Laceration without foreign body of right little finger without damage to nail, initial encounter (principal); W26.8XXA Contact with other sharp object(s), not elsewhere classified, initial encounter
CPT/HCPCS: 99282; J2001

== ENCOUNTER 2020-09-16 07:16 | Emergency (ER) | payer MEDICAID ==
[2020-09-16 07:38] VITALS: BP 124/81; PULSE 72
--- NOTE | 2020-09-16 08:38 | EDM.PDOC ---
ED HPI GENERAL MEDICAL PROBLEM - General Chief Complaint: General Stated Complaint: 20 WEEKS PREG, DEHYDRATED, IFFECTION IN MOUTH Time Seen by Provider: 09/16/20 08:34 Source of Information: Reports: Patient History Limitations: Reports: No Limitations - History of Present Illness INITIAL COMMENTS - FREE TEXT/NARRATIVE: pt is 20 weeks with twins. She has had problem with hydration in the past. She does feel dehydrated and noted that her urine was very dark. She does have a tooth that has been infected and does have a upcoming dental appt. Onset: Gradual, Other (last 2 days. 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 ) Cardiovascular: Reports: No Symptoms Endocrine: Reports: No Symptoms GI/Abdominal: Reports: No Symptoms : Reports: Other (urine looks concentrated. ) Musculoskeletal: Reports: Muscle Pain Skin: Reports: No Symptoms ED EXAM, GENERAL - Physical Exam Exam: See Below Free Text/Narrative:: pt arrived with a laceration of the rt ear. Pt fell out of bed and hit the rt ear. Exam Limited By: No Limitations General Appearance: Alert, Anxious, Mild Distress Nose: Normal Inspection Throat/Mouth: Normal Inspection, Other (pt had an abrasion on her left upper lip but she did not have a through and through puncture. ) Head: Other (pt has a 1/4 inch laceration behind the rt ear. ) Neck: Normal Inspection Respiratory/Chest: No Respiratory Distress Cardiovascular: Regular Rate, Rhythm GI/Abdominal: Soft, Non-Tender (Female) Exam: Other (pt is pregnanat with twins. both heart tones were heard one at 149 and one ay 153. ) Rectal (Female) Exam: Deferred Back Exam: Normal Inspection Extremities: Normal Inspection Neurological: Alert, Oriented, Normal Cognition Psychiatric: Anxious Course - Vital Signs Last Recorded V/S: Last Vital Signs Temp 36.4 C 09/16/20 07:45 Pulse 72 09/16/20 07:45 Resp 16 09/16/20 07:45 BP 124/81 09/16/20 07:45 Pulse Ox 97 09/16/20 07:45 - Orders/Labs/Meds Labs: Laboratory Tests 09/16/20 09/16/20 09/16/20 Range/Units 08:37 08:40 08:40 WBC 9.7 (4.5-11.0) K/uL RBC 3.69 (3.30-5.50) M/uL Hgb 11.1 L D (12.0-15.0) g/dL Hct 32.3 L (36.0-48.0) % MCV 88 (80-98) fL MCH 30 (27-31) pg MCHC 34 (32-36) % Plt Count 224 (150-400) K/uL Neut % (Auto) 79.7 H (36-66) % Lymph % (Auto) 14.0 L (24-44) % [place] % (Auto) 5.4 (2-6) % Eos % (Auto) 0.7 L (2-4) % Baso % (Auto) 0.2 (0-1) % Sodium 138 L (140-148) mmol/L Potassium 3.5 L (3.6-5.2) mmol/L Chloride 104 (100-108) mmol/L Carbon Dioxide 24 (21-32) mmol/L Anion Gap 13.5 (5.0-14.0) mmol/L BUN 5 L D (7-18) mg/dL Creatinine 0.4 L (0.6-1.0) mg/dL Est Cr Clr Drug Dosing 204.00 mL/min Estimated GFR (MDRD) > 60 (>60) Glucose 92 (74-106) mg/dL Calcium 8.6 (8.5-10.1) mg/dL Total Bilirubin 0.3 (0.2-1.0) mg/dL AST 20 (15-37) U/L ALT 25 (12-78) U/L Alkaline Phosphatase 57 (46-116) U/L Total Protein 6.2 L (6.4-8.2) g/dL Albumin 2.7 L (3.4-5.0) g/dL Globulin 3.5 (2.3-3.5) g/dL Albumin/Globulin Ratio 0.8 L (1.2-2.2) Urine Color Yellow (YELLOW) Urine Appearance Clear (CLEAR) Urine pH 6.5 (5.0-8.0) Ur Specific [place] 1.015 (1.008-1.030) Urine Protein Negative (NEGATIVE) mg/dL Urine Glucose (UA) Negative (NEGATIVE) mg/dL Urine Ketones Negative (NEGATIVE) mg/dL Urine Occult Blood Negative (NEGATIVE) Urine Nitrite Negative (NEGATIVE) Urine Bilirubin Negative (NEGATIVE) Urine Urobilinogen 0.2 (0.2-1.0) EU/dL Ur Leukocyte Esterase Negative (NEGATIVE) Urine RBC Not seen (0-5) Urine WBC Not seen (0-5) Ur Epithelial Cells Rare Amorphous Sediment Rare Urine Bacteria Not seen Urine Mucus Not seen Meds: Medications Discontinued Medications Generic Name Dose Route Start Last Admin Trade Name Freq PRN Reason Stop Dose Admin Acetaminophen 650 mg 09/16/20 09:40 09/16/20 09:47 Acetaminophen 325 Mg Tab PO 09/16/20 09:41 650 mg NOW ONE Administration Sodium Chloride 1,000 mls @ 999 mls/hr 09/16/20 08:45 09/16/20 08:46 Normal Saline IV 999 mls/hr ASDIRECTED CARLOS ALBERTO Administration Sodium Chloride 1,000 mls @ 999 mls/hr 09/16/20 09:45 09/16/20 09:49 Normal Saline IV 999 mls/hr ASDIRECTED CARLOS ALBERTO Administration Ondansetron HCl 4 mg 09/16/20 09:39 09/16/20 09:47 Ondansetron 4 Mg/2 Ml Sdv IVPUSH 09/16/20 09:40 4 mg ONETIME ONE Administration - Re-Assessments/Exams Free Text/Narrative Re-Assessment/Exam: 09/16/20 11:05 pt had 2 liters of normal saline and zoforan and she did feel much better. Her lab work showed mild dehydration. Her urine was clear. Departure - Departure Time of Disposition: 11:12 Disposition: Home, Self-Care 01 Condition: Fair Clinical Impression: 20 weeks gestation of , Dehydration - Discharge Information Instructions: Dehydration, Adult, [id number] Referrals: Sabrina Gallegos CNM [Primary Care Provider] - Forms: ED Department Discharge Care Plan Goals: push fluids see Mar Gallegos if pt continues to not feel well. high k food. Sepsis Event Note (ED) - Evaluation Sepsis Screening Result: No Definite Risk
[2020-09-16] MEDS ORDERED: Sodium Chloride 0.9% 1,000 ML IV SCH ×2 (08:45→09:45)
[2020-09-16] MEDS ORDERED: Ondansetron 4 MG/2 ML SDV IVPUSH ONE (09:39)
[2020-09-16] MEDS ORDERED: Acetaminophen 325 MG Tab PO ONE (09:40)
== END 2020-09-16 11:23 | disposition home or self-care (01) ==
LOC: JP.ED 07:16
DX: O99.282 Endocrine, nutritional and metabolic diseases complicating pregnancy, second trimester (principal); E86.0 Dehydration; O9A.212 Injury, poisoning and certain other consequences of external causes complicating pregnancy, second trimester; S01.311A Laceration without foreign body of right ear, initial encounter; S00.511A Abrasion of lip, initial encounter; W06.XXXA Fall from bed, initial encounter; Z3A.20 20 weeks gestation of pregnancy
CPT/HCPCS: 36415; 80053; 81001; 85025; 96374; 99284; A9270; J2405; J7030

== ENCOUNTER 2020-11-22 07:43 | Emergency (ER) | payer MEDICAID ==
[2020-11-22 08:19] VITALS: BP 137/81; PULSE 88
[2020-11-22] MEDS ORDERED: Sodium Chloride 0.9% 10 ML Syringe FLUSH PRN (08:24)
[2020-11-22] MEDS ORDERED: Sodium Chloride 0.9% 1,000 ML IV SCH (08:30)
--- NOTE | 2020-11-22 08:31 | EDM.PDOC ---
ED HPI GENERAL MEDICAL PROBLEM - General Chief Complaint: General Stated Complaint: POSSIBLE COVID, GESTATIONAL DIABETES Time Seen by Provider: 11/22/20 08:07 Source of Information: Reports: Patient History Limitations: Reports: No Limitations - History of Present Illness INITIAL COMMENTS - FREE TEXT/NARRATIVE: Thea is a 30-year-old female who is 30 weeks with twins who presents to the ED for evaluation of possible Covid and gestational diabetes. The patient states that she has been feeling unwell for about a week. Her son had RSV 2 weeks ago. The patient was seen at that time and was found to have an elevated blood glucose, however, she was not notified of this until her follow- up appointment yesterday when she was seen in the [facility] clinic by Loli Saldaña. That time they did a COVID-19 test, however, it is not resulted. She had an appointment with the industrial/organizational psychologist because of the gestational diabetes but that was held off because of the possibility of COVID-19. She is unvaccinated because she feels that the vaccine is not safe during . Loli ordered a glucometer and instructed the patient that the pharmacist would be able to go over how to operate the glucometer, however, the patient feels that she is too weak and dizzy to go pick that up. She states that she has not been eating or drinking much because of feeling unwell. The patient is a high risk with twins. Her symptoms include headache, rhinitis with rhinorrhea, facial pain, sore throat, pain with swallowing, shortness of breath and cough, dizziness, and generalized weakness. 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: RAYSA-06/23/2016 Musculoskeletal History: Reports: Fracture Endocrine/Metabolic History: Reports: Diabetes, Gestational Dermatologic History: Reports: None - Infectious Disease History Infectious Disease History: Reports: Chicken Pox - Past Surgical History Head Surgeries/Procedures: Reports: None HEENT Surgical History: Reports: None Female Surgical History: Reports: None Endocrine Surgical History: Reports: None Musculoskeletal Surgical History: Reports: None Social & Family History - Tobacco Use Tobacco Use Status *Q: Never Tobacco User Second Hand Smoke Exposure: No - Caffeine Use Caffeine Use: Reports: None - Recreational Drug Use Recreational Drug Use: No ED ROS GENERAL - Review of Systems Review Of Systems: See Below Constitutional: Reports: Chills, Malaise, Weakness, Fatigue HEENT: Reports: Rhinitis, Throat Pain, Throat Swelling Respiratory: Reports: Shortness of Breath, Cough Cardiovascular: Reports: No Symptoms Endocrine: Reports: Fatigue, High Glucose GI/Abdominal: Reports: No Symptoms : Reports: No Symptoms Musculoskeletal: Reports: Muscle Pain Neurological: Reports: Dizziness, Headache, Weakness (Generalized weakness) Psychiatric: Reports: No Symptoms Hematologic/Lymphatic: Reports: No Symptoms Immunologic: Reports: No Symptoms ED EXAM, GENERAL - Physical Exam Exam: See Below Exam Limited By: No Limitations General Appearance: Alert, Anxious, Mild Distress Eye Exam: Bilateral Eye: EOMI, PERRL Nose: Nasal Swelling, Nasal Drainage, Clear Rhinorrhea Throat/Mouth: Normal Voice, No Airway Compromise, Inflammation Head: Atraumatic, Normocephalic Neck: Normal Inspection, Supple, Non-Tender, Full Range of Motion. No: Lymphadenopathy (R), Lymphadenopathy (L) Respiratory/Chest: No Respiratory Distress, Lungs Clear, Normal Breath Sounds, No Accessory Muscle Use Cardiovascular: Normal Peripheral Pulses, Regular Rate, Rhythm, No Murmur GI/Abdominal: Normal Bowel Sounds, Soft, Non-Tender, Other (Gravid uterus) Extremities: Normal Inspection Neurological: Alert, Oriented, Normal Cognition, No Motor/Sensory Deficits Psychiatric: Normal Affect, Anxious Course - Vital Signs Last Recorded V/S: Last Vital Signs Temp 36.3 C 11/22/20 08:33 Pulse 88 11/22/20 08:33 Resp 16 11/22/20 08:33 BP 137/81 11/22/20 08:33 Pulse Ox 94 L 11/22/20 08:33 - Orders/Labs/Meds Orders: Active Orders 24 hr Category Date Time Status Sodium Chloride 0.9% [Normal Saline] 1,000 ml Med 11/22/20 08:30 Active IV ASDIRECTED Sodium Chloride 0.9% [Saline Flush] Med 11/22/20 08:24 Active 10 ml FLUSH ASDIRECTED PRN Saline Lock Insert [OM.PC] Routine Oth 11/22/20 08:24 Ordered Medication Orders Sodium Chloride (Normal Saline) 1,000 mls @ 999 mls/hr IV ASDIRECTED CARLOS ALBERTO Last Admin: 11/22/20 08:32 Dose: 999 mls/hr Documented by: JANICE Sodium Chloride (Sodium Chloride 0.9% 10 Ml Syringe) 10 ml FLUSH ASDIRECTED PRN PRN Reason: Keep Vein Open Last Admin: 11/22/20 08:32 Dose: 10 ml Documented by: JANICE Labs: Laboratory Tests 11/22/20 11/22/20 11/22/20 Range/Units 08:23 08:33 08:33 WBC 10.2 (4.5-11.0) K/uL RBC 4.03 (3.30-5.50) M/uL Hgb 12.2 (12.0-15.0) g/dL Hct 35.5 L (36.0-48.0) % MCV 88 (80-98) fL MCH 30 (27-31) pg MCHC 34 (32-36) % Plt Count 200 (150-400) K/uL Neut % (Auto) 77.9 H (36-66) % Lymph % (Auto) 14.5 L (24-44) % [place] % (Auto) 7.1 H (2-6) % Eos % (Auto) 0.3 L (2-4) % Baso % (Auto) 0.2 (0-1) % Sodium 138 L (140-148) mmol/L Potassium 3.8 (3.6-5.2) mmol/L Chloride 102 (100-108) mmol/L Carbon Dioxide 24 (21-32) mmol/L Anion Gap 15.8 H (5.0-14.0) mmol/L BUN 7 (7-18) mg/dL Creatinine 0.5 L (0.6-1.0) mg/dL Est Cr Clr Drug Dosing 174.68 mL/min Estimated GFR (MDRD) > 60 (>60) Glucose 79 (74-106) mg/dL Calcium 8.8 (8.5-10.1) mg/dL C-Reactive Protein 10.36 H (0.0-0.3) mg/dL SARS-CoV-2 RNA (DOMONIQUE) Negative (NEGATIVE) Meds: Medications Generic Name Dose Route Start Last Admin Trade Name Trev PRN Reason Stop Dose Admin Sodium Chloride 1,000 mls @ 999 mls/hr 11/22/20 08:30 11/22/20 08:32 Normal Saline IV 999 mls/hr ASDIRECTED CARLOS ALBERTO Administration Sodium Chloride 10 ml 11/22/20 08:24 11/22/20 08:32 Sodium Chloride 0.9% 10 Ml Syringe FLUSH 10 ml ASDIRECTED PRN Administration Keep Vein Open - Re-Assessments/Exams Free Text/Narrative Re-Assessment/Exam: 11/22/20 09:38 I reviewed Thea's labs including a CBC showing a leukocyte count of 10.2 with a normal differential, hemoglobin of 12.2, crit of 35.5, and platelet count of 200,000. The basic metabolic profile is also normal with a sodium 138, potassium 3.8, chloride of 102, bicarbonate of 24, BUN is 7 with a creatinine of 0.5 and a glucose of 79. Her C-reactive protein is elevated at 10.36 and her COVID-19 test is negative. Patient received a liter of IV normal saline and is feeling somewhat better. I think majority of her symptoms are related to volume depletion due to not eating or drinking. At this time she is suitable for discharge in satisfactory condition. She can follow-up with a industrial/organizational psychologist as before as she has Covid negative. I did encourage her to continue to drink plenty of fluids and to eat something. Departure - Departure Time of Disposition: 09:40 Disposition: Home, Self-Care 01 Clinical Impression: Dehydration, 30 weeks gestation of Twin Qualifiers: Multiple gestation type: dichorionic and diamniotic Trimester: third trimester Qualified Code(s): O30.043 - Twin , dichorionic/diamniotic, third trimester - Discharge Information Instructions: Third Trimester of , Aluq-fo-Dgpi, Dehydration, Adult Referrals: Sabrina Gallegos CNM [Primary Care Provider] - Forms: ED Department Discharge Care Plan Goals: COVID-19 test was negative so you should be able to attend the remainder of your appointments including with the industrial/organizational psychologist. Your you blood glucose is 79 which is in the normal range. I recommend pushing fluids see you do not get further dehydrated. Return if you have any issues. Sepsis Event Note (ED) - Focused Exam Vital Signs: Vital Signs Temp Pulse Resp BP Pulse Ox 11/22/20 08:33 36.3 C 88 16 137/81 94 L 11/22/20 08:18 36.3 C 88 16 137/81 94 L - Problem List & Annotations (1) Dehydration SNOMED Code(s): 55133102 Code(s): E86.0 - DEHYDRATION Status: Acute Priority: Medium Current Visit: Yes (2) 30 weeks gestation of SNOMED Code(s): 70741830 Code(s): Z3A.30 - 30 WEEKS GESTATION OF Status: Acute Priority: Medium Current Visit: Yes (3) Twin SNOMED Code(s): 58341621 Code(s): O30.009 - TWIN , UNSP NUM PLCNTA & AMNIO SACS, UNSP TRIMESTER Status: Acute Priority: Medium Current Visit: Yes Qualifiers: Multiple gestation type: dichorionic and diamniotic Trimester: third trimester Qualified Code(s): O30.043 - Twin , dichorionic/diamniotic, third trimester - Problem List Review Problem List Initiated/Reviewed/Updated: Yes - My Orders Last 24 Hours: My Active Orders 11/22/20 08:24 Sodium Chloride 0.9% [Saline Flush] 10 ml FLUSH ASDIRECTED PRN Saline Lock Insert [OM.PC] Routine 11/22/20 08:30 Sodium Chloride 0.9% [Normal Saline] 1,000 ml IV ASDIRECTED - Assessment/Plan Last 24 Hours: My Active Orders 11/22/20 08:24 Sodium Chloride 0.9% [Saline Flush] 10 ml FLUSH ASDIRECTED PRN Saline Lock Insert [OM.PC] Routine 11/22/20 08:30 Sodium Chloride 0.9% [Normal Saline] 1,000 ml IV ASDIRECTED
== END 2020-11-22 09:58 | disposition home or self-care (01) ==
LOC: JP.ED 07:43
DX: O30.043 Twin pregnancy, dichorionic/diamniotic, third trimester (principal); O99.283 Endocrine, nutritional and metabolic diseases complicating pregnancy, third trimester; E86.0 Dehydration; Z20.822 Contact with and (suspected) exposure to COVID-19; Z3A.30 30 weeks gestation of pregnancy; O24.419 Gestational diabetes mellitus in pregnancy, unspecified control
CPT/HCPCS: 36415; 80048; 82947; 85025; 86140; 87635; 99284; J7030; U0002

== ENCOUNTER 2022-05-04 19:17 | Emergency (ER) | payer MEDICAID ==
[2022-05-04 19:28] VITALS: BP 136/77; PULSE 69
[2022-05-04] MEDS ORDERED: Acetaminophen 500 MG Tab PO ONE (19:28)
[2022-05-04] MEDS ORDERED: Bacitracin Oint 1 GM U/D Packet TOP ONE (19:53)
== END 2022-05-04 20:05 | disposition home or self-care (01) ==
LOC: JP.ED 19:17
DX: S67.22XA Crushing injury of left hand, initial encounter (principal); S67.193A Crushing injury of left middle finger, initial encounter; S67.195A Crushing injury of left ring finger, initial encounter; S60.413A Abrasion of left middle finger, initial encounter; S60.415A Abrasion of left ring finger, initial encounter; W23.0XXA Caught, crushed, jammed, or pinched between moving objects, initial encounter; Y92.89 Other specified places as the place of occurrence of the external cause; Y99.0 Civilian activity done for income or pay
CPT/HCPCS: 73130; 99283; A9270

== ENCOUNTER 2022-05-22 08:39 | Emergency (ER) | payer MEDICAID, OTHER ==
[2022-05-22 08:47] VITALS: BP 139/93; PULSE 99
[2022-05-22] MEDS ORDERED: HYDROmorphone 1 MG/ML Syringe IM ONE (09:19)
[2022-05-22] MEDS ORDERED: Ondansetron 4 MG Tab.DIS PO ONE (09:25)
[2022-05-22] MEDS ORDERED: Ketorolac 30 MG/ML SDV IM ONE (10:28)
[2022-05-22] MEDS ORDERED: Ketorolac 10 MG Tab PO ONE (11:01)
== END 2022-05-22 11:48 | disposition home or self-care (01) ==
LOC: JP.ED 08:39
DX: S30.0XXA Contusion of lower back and pelvis, initial encounter (principal); Z72.0 Tobacco use; W00.0XXA Fall on same level due to ice and snow, initial encounter
CPT/HCPCS: 72170; 72192; 72220; 96372; 99284; A9270; J1170; Q0162

== ENCOUNTER 2023-12-19 01:17 | Emergency (ER) | payer MEDICAID ==
[2023-12-19 01:29] VITALS: BP 130/81; PULSE 70
[2023-12-19 01:45] LABS: BASOPHILS ABSOLUTE AUTO 0.06 K/uL (0.00-0.10); EOSINOPHILS ABSOLUTE AUTO 0.07 K/uL (0.00-0.40); EOSINOPHILS PERCENT AUTO 1.1 % (0.0-5.4); HEMATOCRIT 39.3 % (34.3-46.0); HEMOGLOBIN 13.4 g/dL (11.2-15.5); IMMATURE GRAN ABSOLUTE AUTO 0.02 K/uL (0.00-0.23); IMMATURE GRAN PERCENT AUTO 0.3 % (0.0-0.7); LYMPHOCYTES ABSOLUTE AUTO 1.61 K/uL (0.8-3.3); LYMPHOCYTES PERCENT AUTO 25.8 % (11.4-47.7); MEAN CORPUSCULAR HEMOGLOBIN 31.2 pg (31.6-35.5); MEAN CORPUSCULAR HGB CONC 34.1 g/dL (31.6-35.5); MEAN CORPUSCULAR VOLUME 91.4 fL (81.4-99.0); MONOCYTES ABSOLUTE AUTO 0.47 K/uL (0.20-0.90); MONOCYTES PERCENT AUTO 7.5 % (3.3-12.6); NEUTROPHILS PERCENT AUTO 64.3 % (40.0-78.1); PLATELET COUNT,PLT 201 K/uL (130-375); WHITE BLOOD CELL COUNT,WBC 6.2 K/uL (3.2-11.0)
[2023-12-19 02:01] LABS: CALCIUM 8.4 mg/dL (8.5-10.1); CREATININE 0.4 mg/dL (0.6-1.0); EST CRCL DRUG DOSING (CG) 198.02 mL/min; POTASSIUM,K 3.8 mmol/L (3.6-5.2)
[2023-12-19 02:11] LABS: ANION GAP 18.8 mmol/L (5.0-14.0)
== END 2023-12-19 03:24 | disposition home or self-care (01) ==
LOC: JP.ED 01:17
DX: F10.920 Alcohol use, unspecified with intoxication, uncomplicated (principal)
CPT/HCPCS: 36415; 80048; 80307; 85025; 99284

== ENCOUNTER 2024-10-03 13:57 | Emergency (ER) | payer MEDICAID ==
[2024-10-03 14:18] LABS: APPEARANCE,URINE CLOUDY (CLEAR); GLUCOSE,URINE NEGATIVE (NEGATIVE); OCCULT BLOOD,URINE LARGE (NEGATIVE)
[2024-10-03 14:27] LABS: SQUAMOUS EPITHELIAL CELLS,UR FEW /HPF; UROTHELIAL CELLS,URINE NOT SEEN /HPF
[2024-10-03 16:56] VITALS: BP 131/101; PULSE 65
[2024-10-03] MEDS: Phenazopyridine 95 MG Tab PO ONE (17:15)
[2024-10-03] MEDS: Nitrofurantoin Monohydrate/Macrocrystalline 100 MG Cap PO ONE (17:17)
== END 2024-10-03 17:20 | disposition home or self-care (01) ==
LOC: JP.ED 13:57
DX: N39.0 Urinary tract infection, site not specified (principal)
CPT/HCPCS: 81001; 87086; 87088; 87186; 99283; A9270